=== PATIENT | male | born 1970 | race American Indian/Alaskan Native ===

== ENCOUNTER 2017-08-15 07:22 | Emergency (ER) | payer OTHER, BC ==
[2017-08-15 07:22] VITALS: BMI 28.7
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
[2017-08-15 08:18] LABS: BASO # 0.05 K/mm3 (0.0-2.0); BASO % 0.7 % (0.0-3.0); EOS # 0.1 (0.0-0.7); EOS % 1.9 % (1.5-5.0); GRAN # 4.73 (1.4-6.5); GRAN % 63.8 % (50.0-68.0); HEMATOCRIT 34.6 % (42.0-52.0); LYMPH % 27.5 % (22.0-35.0); MEAN CELL VOLUME 81.6 fl (80.0-105.0); MEAN CORPUSCULAR HEMOGLOBIN 29.7 pg (25.0-35.0); MEAN CORPUSCULAR HGB CONC 36.4 g/dl (31.0-37.0); MEAN PLATELET VOLUME 10.9 fl (7.0-11.0); MONO # 0.5 (0.1-0.6); MONO % 6.1 % (1.0-6.0); RED CELL DISTRIBUTION WIDTH 12.3 % (11.5-14.5); WHITE BLOOD COUNT 7.4 10^3/ul (4.5-11.0)
[2017-08-15 08:34] LABS: ALB/GLOB RATIO 1.1 (1.1-1.8); ALKALINE PHOSPHATASE 95 U/L (38-126); ALT/SGPT 43 U/L (7-56); AST/SGOT 44 U/L (17-59); BILIRUBIN,TOTAL 0.4 mg/dL (0.2-1.3); BLOOD UREA NITROGEN 19 mg/dL (7-21); CALCIUM 8.7 mg/dL (8.4-10.5); CARBON DIOXIDE 24 mmol/L (21-33); CHLORIDE 104 mmol/L (98-107); GFR AFRICAN-AMERICAN > 60; POTASSIUM 4.1 mmol/L (3.6-5.0); SODIUM 135 mmol/L (132-148)
[2017-08-15 08:42] LABS: GLUCOSE,RANDOM 386 mg/dL (70-110)
--- NOTE | 2017-08-15 09:20 | CT ---
PROCEDURE: CT HEAD WITHOUT CONTRAST. HISTORY: headache, hypertension COMPARISON: 01/23/2014 TECHNIQUE: Axial computed tomography images were obtained through the head/brain without intravenous contrast. Radiation dose: Total exam DLP = 775 mGy-cm. This CT exam was performed using one or more of the following dose reduction techniques: Automated exposure control, adjustment of the mA and/or kV according to patient size, and/or use of iterative reconstruction technique. FINDINGS: HEMORRHAGE: No intracranial hemorrhage. BRAIN: No mass effect or edema. No atrophy or chronic microvascular ischemic changes. VENTRICLES: Unremarkable. No hydrocephalus. CALVARIUM: Unremarkable. PARANASAL SINUSES: Unremarkable as visualized. No significant inflammatory changes. MASTOID AIR CELLS: Unremarkable as visualized. No inflammatory changes. OTHER FINDINGS: None. IMPRESSION: Normal CT of the Head.
[2017-08-15 10:01] VITALS: RESP 17; O2SAT 98
[2017-08-15] MEDS ORDERED: Sodium Chloride 0.9% 500 ML IV STA (10:44)
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
[2017-08-15 12:50] VITALS: BP 160/91; PULSE 80; TEMP 98.1
--- NOTE | 2017-08-15 20:55 | CARD ---
APPROVED REPORT EKG Measurement Heart [id number] <Conclusion> Normal sinus rhythm Nonspecific T wave abnormality Abnormal ECG
== END 2017-08-15 12:50 | disposition home or self-care (01) ==
LOC: ED 07:22
DX: M54.5 Low back pain (principal); I10 Essential (primary) hypertension; M54.16 Radiculopathy, lumbar region
CPT/HCPCS: 70450; 72100; 80053; 85025; 93005; 96361; 96374; 99283; J1885; J7040

== ENCOUNTER 2018-02-12 17:21 | Inpatient (IN) | payer BC, OTHER ==
[2018-02-12 17:21] VITALS: BMI 28.7
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
[2018-02-12] MEDS ORDERED: Sodium Chloride 0.9% 1,000 ML IV SCH ×2 (18:00→20:25)
[2018-02-12 18:19] LABS: BASO # 0.03 K/mm3 (0.0-2.0); BASO % 0.3 % (0.0-3.0); EOS % 0.4 % (1.5-5.0); GRAN # 7.78 (1.4-6.5); GRAN % 72.1 % (50.0-68.0); HEMOGLOBIN 13.6 g/dL (14.0-18.0); LYMPH # 2.1 (1.2-3.4); LYMPH % 19.8 % (22.0-35.0); MEAN CELL VOLUME 81.2 fl (80.0-105.0); MEAN CORPUSCULAR HEMOGLOBIN 29.4 pg (25.0-35.0); MEAN CORPUSCULAR HGB CONC 36.2 g/dl (31.0-37.0); MEAN PLATELET VOLUME 10.3 fl (7.0-11.0); MONO # 0.8 (0.1-0.6); MONO % 7.4 % (1.0-6.0); RBC 4.63 10^6/uL (3.5-6.1); RED CELL DISTRIBUTION WIDTH 12.8 % (11.5-14.5); WHITE BLOOD COUNT 10.8 10^3/ul (4.5-11.0)
[2018-02-12 18:24] LABS: INR 1.09 (0.93-1.08); PARTIAL THROMBOPLASTIN TIME 33.8 Seconds (25.1-36.5); PROTHROMBIN TIME 12.5 SECONDS (9.4-12.5)
[2018-02-12 18:37] LABS: ALB/GLOB RATIO 1.2 (1.1-1.8); ALBUMIN 3.8 g/dL (3.0-4.8); ALT/SGPT 39 U/L (7-56); AST/SGOT 36 U/L (17-59); BLOOD UREA NITROGEN 19 mg/dL (7-21); CALCIUM 8.9 mg/dL (8.4-10.5); GFR AFRICAN-AMERICAN > 60; GFR NON-AFRICAN AMERICAN 55
[2018-02-12 18:41] LABS: B-TYPE NATRIURETIC PEPTIDE 652 pg/mL (0-450); TROPONIN I < 0.01 ng/mL
[2018-02-12 19:07] LABS: URINE BILIRUBIN SMALL (NEGATIVE); URINE BLOOD MODERATE (NEGATIVE); URINE GLUCOSE (UA) 100 mg/dL (NEGATIVE); URINE LEUKOCYTE ESTERASE NEGATIVE Leu/uL (NEGATIVE); URINE PROTEIN >=300 mg/dL (<30 mg/dL); URINE UROBILINOGEN 0.2 E.U./dL (<1 E.U./dL)
[2018-02-12 19:09] LABS: URINE APPEARANCE SL CLOUDY (CLEAR); URINE COLOR YELLOW (YELLOW)
[2018-02-12 19:22] LABS: URINE BACTERIA MOD (NEG); URINE FINE GRANULAR CAST 0 - 2 /hpf (0-2); URINE HYALINE CAST 0 - 2 /hpf
[2018-02-12 19:35] LABS: CK-MB 1.8 ng/mL (0.0-3.6)
--- NOTE | 2018-02-12 19:48 | CP.PCM.HP ---
<Eugene Orr - Last Filed: 02/12/18 20:37> History of Present Illness - History of Present Illness History of Present Illness: Subjective: CC: Chest Pain, Vomiting HPI: Patient is a 47 year old male with a past medical history of hypertension and diabetes who presents to the ED for evaluation and treatment of chest pain. States the pain began 1 day ago without any specific provoking event. Originates in the left parasternal region, radiates down left arm, and was associated with SOB. Reproduced on palpation however without radiation. Also admits to several associated bouts of nonbloody nonbilious emesis last night which has resolved without any acute intervention. Denies fever, chills, abdominal pain, diarrhea, constipation, and urinary symptoms. PMHx: htn, dm, questionable CAD PSHx: denies Allergies: ornelas, yellow cheese Medications: please see MAR Social Hx: denies ETOH, denies tobacco, denies illicit drug use PMD: Dr. Farmer Pharmacy: [facility] [place] 12 point ROS negative except as indicated in HPI. Physical Examination: - Constitutional Appears: Well, No Acute Distress - Head Exam Head Exam: ATRAUMATIC, NORMOCEPHALIC - Eye Exam Eye Exam: Normal appearance. absent: Scleral icterus - ENT Exam ENT Exam: Mucous Membranes Moist, Normal Exam - Neck Exam Neck Exam: Normal Inspection - Respiratory Exam Respiratory Exam: Clear to Auscultation Bilateral, NORMAL BREATHING PATTERN. absent: Rales, Rhonchi, Wheezes, Respiratory Distress - Cardiovascular Exam Cardiovascular Exam: REGULAR RHYTHM, +S1, +S2 - GI/Abdominal Exam GI & Abdominal Exam: Soft, Normal Bowel Sounds. absent: Guarding, Rigid, Tenderness, Organomegaly - Extremities Exam Extremities Exam: no clubbing, no cyanosis absent: Joint Swelling - Neurological Exam Neurological Exam: Alert, Awake, Oriented x3 - Skin Skin Exam: Dry, Intact, Normal Color, Warm Assessment and Plan: Patient is a 47 year old male with a past medical history of hypertension and diabetes who was admitted for evaluation and treatment of chest pain. Chest Pain - rule out ACS - EKG reviewed and appreciated- NSR HR 93bpm, QTc 450, T wave abnormality in leads I and v6 - troponins negative x 1, will trend q6h x 2 - asa loaded in ED, 81mg po daily - cardiology consulted- appreciate recommendations - CXR- ordered by ED, official read pending at time of admission - Echo from LVEF 60-65%, mild aortic regurgitation Nausea, Vomiting - zofran prn QTc 450 Elevated CPK - patient denied recent rigorous activity, no trauma, not on statin - IVF NS @ 60 Microscopic Hematuria - blood moderate on UA - renal ultrasound ordered and pending Anemia - Hgb reviewed, trended, appreciated- low normal - likely 2/2 IVF - monitor closely via CBC Hx of HTN - blood pressure- reviewed, trended, and appreciated- elevated 160s/100 - confirm home antihypertensive medication- believes he takes HCTZ but uncertain - prn hydralazine Hx of DM - ACHS - hold home insulin - ISS - carb consistent diet Prophylaxis - DVT- scds - GI- not indicated Patient case reviewed with and plan approved by attending physician, Dr. Tinoco. Present on Admission - Present on Admission Any Indicators Present on Admission: No Past Patient History - Infectious Disease Hx of Infectious Diseases: None - Tetanus Immunizations Tetanus Immunization: Unknown - Past Social History Smoking Status: Never Smoked - CARDIAC Hx Hypertension: Yes - PULMONARY Hx Respiratory Disorders: No - NEUROLOGICAL Hx Neurological Disorder: No (SYNCOPAL EPISODE 4-5 YRS AGO AND TODAY 4--14) - HEENT Hx HEENT Problems: No - RENAL Hx Chronic Kidney Disease: No - ENDOCRINE/METABOLIC Hx Diabetes Mellitus Type 1: Yes - HEMATOLOGICAL/ONCOLOGICAL Hx Blood Disorders: No - INTEGUMENTARY Hx Dermatological Problems: No (TATTOOS) - MUSCULOSKELETAL/RHEUMATOLOGICAL Hx Musculoskeletal Disorders: No - GASTROINTESTINAL Hx Gastroesophageal Reflux: Yes - GENITOURINARY/GYNECOLOGICAL Hx Genitourinary Disorders: No - PSYCHIATRIC Hx Psychophysiologic Disorder: No Hx Substance Use: No - SURGICAL HISTORY Hx Surgeries: No Meds Allergies/Adverse Reactions: Allergies Allergy/AdvReac Type Severity Reaction Status Date / Time [place] Allergy Severe ANAPHYLAXIS Uncoded 02/12/18 17:27 yellow cheese Allergy Severe ANAPHYLAXIS Uncoded 02/12/18 17:27 Results - Vital Signs Recent Vital Signs: Last Vital Signs Temp 98.2 F 02/12/18 17:21 Pulse 87 02/12/18 19:15 Resp 18 02/12/18 19:15 BP 167/100 H 02/12/18 19:15 Pulse Ox 100 02/12/18 19:15 - Labs Result Diagrams: 02/12/18 17:55 02/12/18 17:55 Labs: Laboratory Results - last 24 hr 02/12/18 02/12/18 02/12/18 17:37 17:55 17:55 WBC 10.8 D RBC 4.63 Hgb 13.6 L Hct 37.6 L MCV 81.2 MCH 29.4 MCHC 36.2 RDW 12.8 Plt Count 347 MPV 10.3 Gran % 72.1 H Lymph % (Auto) 19.8 L Alpine % (Auto) 7.4 H Eos % (Auto) 0.4 L Baso % (Auto) 0.3 Gran # 7.78 H Lymph # (Auto) 2.1 Alpine # (Auto) 0.8 H Eos # (Auto) 0.0 Baso # (Auto) 0.03 PT 12.5 INR 1.09 H APTT 33.8 Sodium Potassium Chloride Carbon Dioxide Anion Gap BUN Creatinine Est GFR ( Amer) Est GFR (Non-Af Amer) POC Glucose (mg/dL) 132 H Random Glucose Calcium Magnesium Total Bilirubin AST ALT Alkaline Phosphatase Lactate Dehydrogenase Total Creatine Kinase CK-MB (CK-2) CK-MB (CK-2) % Troponin I NT-Pro-B Natriuret Pep Total Protein Albumin Globulin Albumin/Globulin Ratio Urine Color Urine Appearance Urine pH Ur Specific [place] Urine Protein Urine Glucose (UA) Urine Ketones Urine Blood Urine Nitrate Urine Bilirubin Urine Urobilinogen Ur Leukocyte Esterase Urine RBC Urine WBC Ur Epithelial Cells Urine Bacteria Hyaline Casts Fine Granular Casts 02/12/18 02/12/18 17:55 18:50 WBC RBC Hgb Hct MCV MCH MCHC RDW Plt Count MPV Gran % Lymph % (Auto) Alpine % (Auto) Eos % (Auto) Baso % (Auto) Gran # Lymph # (Auto) Alpine # (Auto) Eos # (Auto) Baso # (Auto) PT INR APTT Sodium 142 Potassium 3.6 Chloride 105 Carbon Dioxide 26 Anion Gap 14 BUN 19 Creatinine 1.4 Est GFR ( Amer) > 60 Est GFR (Non-Af Amer) 55 POC Glucose (mg/dL) Random Glucose 131 H Calcium 8.9 Magnesium 1.9 Total Bilirubin 0.6 AST 36 ALT 39 Alkaline Phosphatase 59 Lactate Dehydrogenase 774 H Total Creatine Kinase 458 H CK-MB (CK-2) 1.8 CK-MB (CK-2) % Cancelled Troponin I < 0.01 NT-Pro-B Natriuret Pep 652 H Total Protein 6.8 Albumin 3.8 Globulin 3.1 Albumin/Globulin Ratio 1.2 Urine Color Yellow Urine Appearance Sl cloudy Urine pH 6.0 Ur Specific [place] >= 1.030 Urine Protein >=300 H Urine Glucose (UA) 100 H Urine Ketones Negative Urine Blood Moderate H Urine Nitrate Negative Urine Bilirubin Small H Urine Urobilinogen 0.2 Ur Leukocyte Esterase Negative Urine RBC 2 - 5 Urine WBC 5 - 10 Ur Epithelial Cells 1 - 3 Urine Bacteria Mod Hyaline Casts 0 - 2 Fine Granular Casts 0 - 2 <Cathy Tinoco - Last Filed: 02/13/18 06:41> Results - Vital Signs Recent Vital Signs: Last Vital Signs Temp 98 F 02/13/18 06:00 Pulse 89 02/13/18 06:00 Resp 20 02/13/18 06:00 BP 163/80 H 02/13/18 06:00 Pulse Ox 98 02/13/18 06:00 - Labs Result Diagrams: 02/12/18 17:55 02/12/18 17:55 Labs: Laboratory Results - last 24 hr 02/12/18 02/12/18 22:41 23:15 POC Glucose (mg/dL) 90 Lactate Dehydrogenase 626 Total Creatine Kinase 336 H CK-MB (CK-2) 1.2 CK-MB (CK-2) % Cancelled Troponin I < 0.01 Attending/Attestation - Attestation I have personally seen and examined this patient.: Yes I have fully participated in the care of the patient.: Yes I have reviewed all pertinent clinical information: Yes Notes (Text): 02/13/18 06:31 Patient was seen when he was in the ER. Agree with history, physical examination, assessment and plan. Following should be noted. Impressions: Chest pain. NIDDM. HLD. HTN. Hematuria. Elevated CK. Elevated BNP. EKG change-Inverte T in I, aVL, V6. Family history of CAD. Family history of GA. Allergy to [place], yellow cheese. History of syncope. History of syncope. History of diverticulitis. Marijuana use. Drinks beer now and then. Family [id number], PGF-DM, renal failure., MGF-renal failure, Mother - cancer -does not know where, MGF-colon cancer, ROS:Has chills, night sweat, blurry eyes , epistaxis as child , underactive thyroid, prescribed some medication for that by , GERD, had cystoscopy done in Oct 2017 by Melissa Villalobos for blood in urine, history of migraine +.
[2018-02-12 21:01] LABS: HDL CHOLESTEROL 69 mg/dL (29-60)
[2018-02-12 21:12] LABS: LDL CHOLESTEROL 60 mg/dL (0-129)
[2018-02-12] MEDS: Insulin Lispro (humaLOG) MEDIUM Coverage SC SCH (22:51)
[2018-02-12 23:47] LABS: TROPONIN I < 0.01 ng/mL
[2018-02-13 00:02] LABS: CK-MB 1.2 ng/mL (0.0-3.6)
[2018-02-13 07:13] LABS: TROPONIN I 0.04 ng/mL
[2018-02-13 07:29] LABS: BASO # 0.04 K/mm3 (0.0-2.0); BASO % 0.5 % (0.0-3.0); EOS # 0.1 (0.0-0.7); EOS % 1.5 % (1.5-5.0); GRAN # 5.21 (1.4-6.5); GRAN % 60.3 % (50.0-68.0); HEMOGLOBIN 12.5 g/dL (14.0-18.0); LYMPH # 2.5 (1.2-3.4); LYMPH % 28.4 % (22.0-35.0); MEAN CELL VOLUME 82.5 fl (80.0-105.0); MEAN CORPUSCULAR HEMOGLOBIN 29.5 pg (25.0-35.0); MEAN CORPUSCULAR HGB CONC 35.7 g/dl (31.0-37.0); MONO # 0.8 (0.1-0.6); MONO % 9.3 % (1.0-6.0); RBC 4.24 10^6/uL (3.5-6.1); RED CELL DISTRIBUTION WIDTH 12.9 % (11.5-14.5); WHITE BLOOD COUNT 8.6 10^3/ul (4.5-11.0)
[2018-02-13 07:30] LABS: ALBUMIN 2.9 g/dL (3.0-4.8); ALT/SGPT 31 U/L (7-56); AST/SGOT 34 U/L (17-59); BLOOD UREA NITROGEN 20 mg/dL (7-21); CALCIUM 8.1 mg/dL (8.4-10.5); GFR AFRICAN-AMERICAN > 60; GFR NON-AFRICAN AMERICAN 60
[2018-02-13] MEDS: Insulin Lispro (humaLOG) MEDIUM Coverage SC SCH ×4 (08:07→21:46)
[2018-02-13] MEDS ORDERED: Iohexol 240 (50 ml) ONE (08:11)
--- NOTE | 2018-02-13 09:16 | RAD ---
HISTORY: 47M, chest pain COMPARISON: Comparison made with prior study 01/23/2014 FINDINGS: LUNGS: No acute infiltrates. Note made of a small nodular density left lung base which could represent confluence of shadow, vessel on end or nipple shadow artifact however possibility of a tiny nodule not excluded. Followup nonemergent CT scan of the chest could be performed for further evaluation the PLEURA: No significant pleural effusion identified, no pneumothorax apparent. CARDIOVASCULAR: Normal. OSSEOUS STRUCTURES: No significant abnormalities. VISUALIZED UPPER ABDOMEN: Normal. OTHER FINDINGS: None. IMPRESSION: No acute infiltrates. Note made of a small nodular density left lung base which could represent confluence of shadow, vessel on end or nipple shadow artifact however possibility of a tiny nodule not excluded. Followup nonemergent CT scan of the chest could be performed for further evaluation. . The all placed PA and ball followup
--- NOTE | 2018-02-13 10:51 | CP.PCM.PN ---
Addendum entered and electronically signed by Eugene Orr DO 02/13/18 12:36: As per patient, he had a cystoscopy for evaluation and work up of his microscopic hematuria with Dr. Torres which resulted in no significant findings. Will contact urologist for further information/clarification. Original Note: <Eugene Orr - Last Filed: 02/13/18 10:37> Subjective - Date & Time of Evaluation Date of Evaluation: 02/13/18 Time of Evaluation: 07:20 - Subjective Subjective: Subjective: Patient seen and examined at bedside. Resting comfortably in bed. No acute overnight events. Patient states chest pain remains the same compared to baseline. Offers no new complaints at this time. Denies fever, chills, shortness of breath, diarrhea, constipation, and urinary symptoms. 12-point review of systems negative except as indicated in the HPI Physical Examination: - Constitutional Appears: Well, No Acute Distress - Head Exam Head Exam: ATRAUMATIC, NORMOCEPHALIC - Eye Exam Eye Exam: Normal appearance. absent: Scleral icterus - ENT Exam ENT Exam: Mucous Membranes Moist, Normal Exam - Neck Exam Neck Exam: Normal Inspection - Respiratory Exam Respiratory Exam: Clear to Auscultation Bilateral, NORMAL BREATHING PATTERN. absent: Rales, Rhonchi, Wheezes, Respiratory Distress - Cardiovascular Exam Cardiovascular Exam: REGULAR RHYTHM, +S1, +S2, left anterior chest wall tender to touch - GI/Abdominal Exam GI & Abdominal Exam: Soft, Normal Bowel Sounds. absent: Guarding, Rigid, Tenderness, Organomegaly - Extremities Exam Extremities Exam: no clubbing, no cyanosis absent: Joint Swelling - Neurological Exam Neurological Exam: Alert, Awake, Oriented x3 - Skin Skin Exam: Dry, Intact, Normal Color, Warm Assessment and Plan: Patient is a 47 year old male with a past medical history of hypertension and diabetes who was admitted for evaluation and treatment of chest pain. Chest Pain - rule out ACS- troponins less than 0.01 x 3 - EKG reviewed and appreciated- NSR HR 93bpm, QTc 450, T wave abnormality in leads I and v6 - asa loaded in ED, 81mg po daily - cardiology consulted- appreciate recommendations - CXR- ordered by ED, official read pending at time of admission - Echo from 2013 shows LVEF 60-65%, mild aortic regurgitation, repeat echo ordered and pending - UDS ordered and pending- rule out illicit drug induced angina Nausea, Vomiting - zofran prn QTc 450 - abdominal CT with PO contrast ordered and pending Elevated CPK - trending down - patient denied recent rigorous activity, no trauma, not on statin - stop IVF NS @ 60 as CPK is downtrending and BP is elevated Microscopic Hematuria - blood moderate on UA - renal ultrasound ordered and pending- completed awaiting official read - repeat UA ordered and pending Anemia - Hgb reviewed, trended, appreciated- low normal - likely 2/2 IVF - monitor closely via CBC Hx of HTN - blood pressure- reviewed, trended, and appreciated- elevated 160s/100 - patient started on lisinopril and metoprolol - prn hydralazine Hx of DM - ACHS - hold home insulin - ISS - carb consistent diet Prophylaxis - DVT- scds - GI- not indicated Patient case reviewed with and plan approved by attending physician, Dr. Cuadra. Objective - Vital Signs/Intake and Output Vital Signs (last 24 hours): Temp Pulse Resp BP Pulse Ox 98 F 85 20 186/93 H 98 02/13/18 06:00 02/13/18 09:28 02/13/18 06:00 02/13/18 09:28 02/13/18 06:00 Intake and Output: 02/13/18 02/13/18 06:59 18:59 Intake Total 540 Output Total 0 Balance 540 - Medications Medications: Current Medications Aspirin (Ecotrin) 81 mg PO DAILY [facility] Last Admin: 02/13/18 09:28 Dose: 81 mg Hydralazine HCl (Apresoline) 10 mg IVP DAILY PRN PRN Reason: Systolic Blood Pressure Sodium Chloride (Sodium Chloride 0.9%) 1,000 mls @ 60 mls/hr IV .[id number] [facility] Last Admin: 02/12/18 21:21 Dose: 60 mls/hr Insulin Human Lispro (Humalog Med) 0 units SC [facility] PRN Reason: Protocol Last Admin: 02/13/18 08:07 Dose: Not Given Lisinopril (Zestril) 10 mg PO DAILY [facility] Last Admin: 02/13/18 09:28 Dose: 10 mg Metoprolol Tartrate (Lopressor) 25 mg PO BID [facility] Last Admin: 02/13/18 09:28 Dose: 25 mg Ondansetron HCl (Zofran Inj) 4 mg IVP Q6H PRN PRN Reason: Nausea/Vomiting - Labs Labs: 02/13/18 06:00 02/13/18 06:00 PT 12.5 SECONDS (9.4-12.5) 02/12/18 17:55 INR 1.09 (0.93-1.08) H 02/12/18 17:55 APTT 33.8 Seconds (25.1-36.5) 02/12/18 17:55 <Kitty Cuadra - Last Filed: 02/13/18 14:59> Objective - Vital Signs/Intake and Output Vital Signs (last 24 hours): Temp Pulse Resp BP Pulse Ox 98.1 F 72 20 178/94 H 98 02/13/18 12:00 02/13/18 12:00 02/13/18 12:00 02/13/18 12:00 02/13/18 06:00 Intake and Output: 02/13/18 02/13/18 06:59 18:59 Intake Total 540 Output Total 0 Balance 540 - Medications Medications: Current Medications Aspirin (Ecotrin) 81 mg PO DAILY [facility] Last Admin: 02/13/18 09:28 Dose: 81 mg Hydralazine HCl (Apresoline) 10 mg IVP DAILY PRN PRN Reason: Systolic Blood Pressure Ceftriaxone Sodium (Rocephin 1 Gram Ivpb) 1 gm in 100 mls @ 100 mls/hr IVPB DAILY [facility] PRN Reason: Protocol Insulin Human Lispro (Humalog Med) 0 units SC [facility] PRN Reason: Protocol Last Admin: 02/13/18 13:03 Dose: 1 units Lisinopril (Zestril) 10 mg PO DAILY [facility] Last Admin: 02/13/18 09:28 Dose: 10 mg Metoprolol Tartrate (Lopressor) 25 mg PO BID [facility] Last Admin: 02/13/18 09:28 Dose: 25 mg Ondansetron HCl (Zofran Inj) 4 mg IVP Q6H PRN PRN Reason: Nausea/Vomiting - Labs Labs: 02/13/18 06:00 02/13/18 06:00 PT 12.5 SECONDS (9.4-12.5) 02/12/18 17:55 INR 1.09 (0.93-1.08) H 02/12/18 17:55 APTT 33.8 Seconds (25.1-36.5) 02/12/18 17:55 Attending/Attestation - Attestation I have personally seen and examined this patient.: Yes I have fully participated in the care of the patient.: Yes I have reviewed all pertinent clinical information, including history, physical exam and plan: Yes Notes (Text): 02/13/18 14:56 attending note; Patient seen and examined with resident. Patient is a 47-year-old male with a past medical history of hypertension, diabetes, diverticulitis, microscopic hematuria is admitted with chest pain. EKG showed nonspecific changes. Cardiac enzymes negative. Echocardiogram ordered. Cardiology evaluation requested. Abdominal discomfort. Patient had few episodes of nausea and vomiting yesterday. CT abdomen and pelvis showed diverticulosis without diverticulitis. Mild perinephric stranding around both kidneys noted. no kidney stones or hydronephrosis. Started on IV Rocephin. Urine culture is pending. Patient had previous workup With Dr. Torres for microscopic hematuria with cystoscopy. The workup was normal as per patient. Renal ultrasound is normal. Needs outpatient follow up. Possible discharge home tomorrow if clinically stable. Upon discharge The patient will follow up with PMD .
[2018-02-13 13:24] LABS: T4 6.8 ug/dL (5.5-11.0)
--- NOTE | 2018-02-13 13:30 | CT ---
PROCEDURE: CT Abdomen and Pelvis with Oral contrast. HISTORY: Abdominal pain with nausea vomiting COMPARISON: Correlation made with renal ultrasound obtained earlier same day TECHNIQUE: Contiguous axial images of the abdomen and pelvis. Oral contrast was administered. No IV contrast given. Coronal and Sagittal reformats generated. Radiation dose: Total exam DLP = This CT exam was performed using one or more of the following dose reduction techniques: Automated exposure control, adjustment of the mA and/or kV according to patient size, and/or use of iterative reconstruction technique. FINDINGS: LOWER THORAX: Heart size is of borderline/mildly enlarged. No significant pericardial effusion. Lung bases clear. No infiltrate effusion or basilar pneumothorax. There is tiny hiatal hernia with slight wall thickening of the distal esophagus that is likely due to protrusion of gastric mucosa however esophagitis not excluded. LIVER: Liver is upper limits of normal/ borderline enlarged measuring just over 19 cm in CC dimension. No obvious hepatic mass or collection identified on this noncontrast study. GALLBLADDER AND BILE DUCTS: Unremarkable. PANCREAS: Unremarkable. No mass. No ductal dilatation. SPLEEN: Unremarkable. No splenomegaly. ADRENALS: Unremarkable. KIDNEYS AND URETERS: There is a small approximately 2.7 x 2.1 partially exophytic round/elliptical shaped focus low attenuation upper pole right kidney that exhibits Hounsfield units in the upper single digits consistent with a cyst. . No evidence of nephrolithiasis or hydronephrosis. Some vague infiltration changes in the perinephric fat more so on the right side nonspecific. Rule out UTI. BLADDER: Urinary bladder physiologically distended. No evidence of intraluminal urinary bladder calculi. . No definitive abnormal bladder wall thickening. REPRODUCTIVE: Prostate gland measures approximately 4.6 cm in transverse dimension. Prostatic calcifications are present. Findings likely due to BPH however correlation with PSA recommended. APPENDIX: Normal-appearing appendix best seen on coronal image number [id number]. BOWEL: Evaluation of the bowel is somewhat limited due to incomplete opacification. The stomach is and nondistended which in accounts for thick-walled appearance gastritis not excluded. . Visualized loops of small bowel exhibit normal contour and caliber. No evidence of acute mechanical small bowel obstruction with oral contrast material seen extending into large bowel to the level of the splenic flexure region. Scattered colonic diverticula seen along the descending and sigmoid colon however no definitive radiographic evidence of acute diverticulitis. PERITONEUM: Unremarkable. No fluid collection. No free air. Small fat containing inguinal hernia. LYMPH NODES: Few small nonspecific retroperitoneal and mesenteric lymph nodes are present. VASCULATURE: Unremarkable. No aortic aneurysm. BONES: The vertebral bodies exhibit normal stature. There is straightening of the normal lumbar lordosis however vertebral bodies otherwise exhibit normal alignment. Facets normally aligned. Very minor multilevel degenerative spondylosis of the lower thoracic and lumbar spine. OTHER FINDINGS: None. IMPRESSION: There is an exophytic cyst upper pole right kidney. Vague infiltration changes within the perinephric fat bilaterally right greater than left. Rule out UTI. No evidence of nephrolithiasis or hydronephrosis. Hepatomegaly. Diverticulosis without radiographic evidence of acute diverticulitis. See above discussion for additional details and findings.
--- NOTE | 2018-02-13 13:34 | US ---
PROCEDURE: Ultrasound of the Kidneys HISTORY: microscopic hematuria COMPARISON: None available. TECHNIQUE: Sonogram of the kidneys. FINDINGS: RIGHT KIDNEY: Measures: 12.8 x 6.5 x 6.6 cm. Normal in size, contour and echogenicity. Partially exophytic cyst upper pole right kidney measuring 2.5 x2 0.4 x 2.2 cm No stone, solid mass lesion or hydronephrosis visualized. LEFT KIDNEY: Measures: 11.4 x 7.6 x 6.7 cm. Normal in size, contour and echogenicity. No stone, solid mass lesion or hydronephrosis visualized. OTHER FINDINGS: None. IMPRESSION: Exophytic cyst upper pole right kidney. No evidence of nephrolithiasis or hydronephrosis.
[2018-02-13] MEDS: cefTRIAXone 1 gm 1 GM/100 ML BAG IVPB SCH (14:22)
[2018-02-13 19:55] LABS: PH,URINE 5.5 (4.7-8.0); URINE BILIRUBIN NEGATIVE (NEGATIVE); URINE BLOOD MODERATE (NEGATIVE); URINE GLUCOSE (UA) 100 mg/dL (NEGATIVE); URINE LEUKOCYTE ESTERASE NEGATIVE Leu/uL (NEGATIVE); URINE PROTEIN >=300 mg/dL (<30 mg/dL); URINE UROBILINOGEN 0.2 E.U./dL (<1 E.U./dL)
[2018-02-13 20:00] LABS: URINE APPEARANCE SL CLOUDY (CLEAR); URINE COLOR DARK YELLOW (YELLOW)
[2018-02-13 20:07] LABS: URINE AMORPHOUS SEDIMENT SMALL; URINE RBC 20 - 25 /hpf (0-2)
[2018-02-13 20:30] LABS: BARBITURATES, UR NEGATIVE (NEGATIVE); BENZODIAZEPINES, UR NEGATIVE (NEGATIVE); OPIATES, UR NEGATIVE (NEGATIVE); PHENCYCLIDINE, UR NEGATIVE (NEGATIVE)
--- NOTE | 2018-02-13 21:49 | CARD ---
APPROVED REPORT EKG Measurement Heart [id number] <Conclusion> Normal sinus rhythm T wave abnormality, consider lateral ischemia Abnormal ECG
--- NOTE | 2018-02-14 02:55 | CON ---
DATE: CARDIOLOGY CONSULTATION REASON FOR CONSULTATION: Chest pain. HISTORY OF PRESENT ILLNESS: The patient is a 47-year-old male, who has a history of hypertension and diabetes mellitus. The patient has been diabetic for the past 7 years. He presents because of chest pain that he describes as both sharp and heavy, and it has been constant since admission until now. The patient is unaware of any prior cardiac history. The patient described radiation of the chest pain to left arm, but denies any shortness of breath or diaphoresis. The chest pain happened while the patient was resting at home. SOCIAL HISTORY: Nonsmoker. MEDICATIONS: Hydralazine 10 mg intravenously p.r.n., aspirin 81 mg once a day, Lopressor 25 mg once a day, Rocephin 1 g 10 mg once a day, Zofran 4 mg intravenously every 6 hours p.r.n. REVIEW OF SYSTEMS: The patient did report nausea and vomiting. No diarrhea. PHYSICAL EXAMINATION: GENERAL: The patient is a middle-aged male, who does not appear to be in any distress. VITAL SIGNS: Blood pressure 178/94, heart rate 72, temperature 98.1, respirations 20. HEENT: Normocephalic. CHEST: Clear. HEART: S1 and S2 regular. ABDOMEN: Soft. EXTREMITIES: No edema. No calf tenderness. LABORATORY DATA: Hemoglobin and hematocrit 12.5 and 35. White count and platelet count are within normal limits. SMA-7: Sodium 140, potassium 3.7, chloride 108, CO2 of 27, glucose 141, BUN 20, creatinine 1.3. Two sets of troponins are not in the elevated range. TSH level is elevated at 14.3. T4 level is 6.8, within normal limit. INR is 1.09. PTT 33.8. EKG reveals sinus rhythm, consider lateral ischemic T wave changes. Abdomen and pelvis CT scan reveals exophytic cyst, upper right kidney pole. No evidence of nephrolithiasis or hydronephrosis. Hepatomegaly. Diverticulosis without areas of acute diverticulitis. Renal ultrasound, exophytic cyst upper pole right kidney. No evidence of nephrolithiasis or hydronephrosis. Chest x-ray was unremarkable. Echocardiographic study in 2014 revealed grade 1 abnormal relaxation pattern; however, is an unremarkable study except for trace MR and mild aortic insufficiency. ASSESSMENT: 1. Chest pain, rule out underlying coronary artery disease. 2. Hypertension and diabetes mellitus. 3. Rule out hypothyroidism. 4. Exophytic right upper pole renal cyst. RECOMMENDATIONS: Continue current hydralazine, aspirin, Lopressor, and Zestril. Obtain serial D-dimer, and schedule the patient for an echocardiographic study tomorrow to evaluate for any regional wall motion abnormality. Andrew García MD
[2018-02-14 06:57] LABS: BASO # 0.03 K/mm3 (0.0-2.0); BASO % 0.4 % (0.0-3.0); EOS # 0.1 (0.0-0.7); EOS % 1.5 % (1.5-5.0); GRAN # 5.12 (1.4-6.5); GRAN % 60.6 % (50.0-68.0); HEMOGLOBIN 12.5 g/dL (14.0-18.0); LYMPH # 2.6 (1.2-3.4); LYMPH % 30.5 % (22.0-35.0); MEAN CELL VOLUME 81.9 fl (80.0-105.0); MEAN CORPUSCULAR HEMOGLOBIN 28.6 pg (25.0-35.0); MEAN CORPUSCULAR HGB CONC 34.9 g/dl (31.0-37.0); MEAN PLATELET VOLUME 10.5 fl (7.0-11.0); MONO # 0.6 (0.1-0.6); RBC 4.37 10^6/uL (3.5-6.1); RED CELL DISTRIBUTION WIDTH 12.8 % (11.5-14.5); WHITE BLOOD COUNT 8.4 10^3/ul (4.5-11.0)
[2018-02-14 07:34] LABS: ALB/GLOB RATIO 0.9 (1.1-1.8); ALBUMIN 2.9 g/dL (3.0-4.8); ALT/SGPT 24 U/L (7-56); AST/SGOT 28 U/L (17-59); BLOOD UREA NITROGEN 22 mg/dL (7-21); CALCIUM 8.2 mg/dL (8.4-10.5); GFR AFRICAN-AMERICAN > 60; GFR NON-AFRICAN AMERICAN > 60
[2018-02-14] MEDS ORDERED: Potassium Chloride 40 mEq/30 ml LIQ UD PO ONE (08:23)
[2018-02-14 08:33] LABS: FREE T4 0.74 ng/dL (0.78-2.19)
--- NOTE | 2018-02-14 10:04 | CT ---
PROCEDURE: CT Chest without contrast HISTORY: follow up nodular opacity in left chest seen cxr COMPARISON: None. TECHNIQUE: Contiguous axial images were obtained through the chest without intravenous contrast enhancement. Sagittal and coronal reconstructions were performed. Radiation dose (DLP): mGy-cm. This CT exam was performed using one or more of the following dose reduction techniques: Automated exposure control, adjustment of the mA and/or kV according to patient size, and/or use of iterative reconstruction technique. FINDINGS: LUNGS: Clear lungs. Visualized airway clear. MEDIASTINUM: Unremarkable thoracic aorta. No aneurysm. Normal sized heart. Main pulmonary artery unremarkable. No vascular congestion. No lymphadenopathy. PLEURA: No pleural fluid. No pneumothorax. BONES: No fracture. No destructive lesion. UPPER ABDOMEN: 2.7 centimeter right upper pole renal cyst. OTHER FINDINGS: None. IMPRESSION: Unremarkable non-contrast enhanced CT of the chest.
[2018-02-14] MEDS: Insulin Lispro (humaLOG) MEDIUM Coverage SC SCH ×3 (10:10→18:13)
[2018-02-14] MEDS: cefTRIAXone 1 gm 1 GM/100 ML BAG IVPB SCH (10:45)
--- NOTE | 2018-02-14 10:46 | CP.PCM.PN ---
<Eugene Orr - Last Filed: 02/14/18 12:06> Subjective - Date & Time of Evaluation Date of Evaluation: 02/14/18 Time of Evaluation: 10:00 - Subjective Subjective: Subjective: Patient seen and examined at bedside. Resting comfortably in bed. No acute overnight events. Patient states chest pain, N/V have improved relative to baseline. Offers no new complaints at this time. Denies fever, chills, shortness of breath, diarrhea, constipation, and urinary symptoms. 12-point review of systems negative except as indicated in the HPI Physical Examination: - Constitutional Appears: Well, No Acute Distress - Head Exam Head Exam: ATRAUMATIC, NORMOCEPHALIC - Eye Exam Eye Exam: Normal appearance. absent: Scleral icterus - ENT Exam ENT Exam: Mucous Membranes Moist, Normal Exam - Neck Exam Neck Exam: Normal Inspection - Respiratory Exam Respiratory Exam: Clear to Auscultation Bilateral, NORMAL BREATHING PATTERN. absent: Rales, Rhonchi, Wheezes, Respiratory Distress - Cardiovascular Exam Cardiovascular Exam: REGULAR RHYTHM, +S1, +S2, left anterior chest wall tender to touch - GI/Abdominal Exam GI & Abdominal Exam: Soft, Normal Bowel Sounds. absent: Guarding, Rigid, Tenderness, Organomegaly - Extremities Exam Extremities Exam: no clubbing, no cyanosis absent: Joint Swelling - Neurological Exam Neurological Exam: Alert, Awake, Oriented x3 - Skin Skin Exam: Dry, Intact, Normal Color, Warm Assessment and Plan: Patient is a 47 year old male with a past medical history of hypertension and diabetes who was admitted for evaluation and treatment of chest pain. Chest Pain - rule out ACS- troponins less than 0.01 x 3 - EKG reviewed and appreciated- NSR HR 93bpm, QTc 450, T wave abnormality in leads I and v6 - asa loaded in ED, c/w 81mg po daily - cardiology consulted- appreciate recommendations- cardiac catherization - awaiting official report - CXR- No acute infiltrates. Note made of a small nodular density left lung base which could represent confluence of shadow, vessel on end or nipple shadow artifact however possibility of a tiny nodule not excluded - CT of chest- Unremarkable non-contrast enhanced CT of the chest - echo from 2013 shows LVEF 60-65%, mild aortic regurgitation, repeat echo ordered and read is pending - UDS clean Nausea, Vomiting - zofran prn QTc 450 - abdominal CT with PO contrast - There is an exophytic cyst upper pole right kidney. Vague infiltration changes within the perinephric fat bilaterally right greater than left. Rule out UTI. No evidence of nephrolithiasis or hydronephrosis. Hepatomegaly. Diverticulosis without radiographic evidence of acute diverticulitis Elevated CPK - trending down - patient denied recent rigorous activity, no trauma, not on statin - continue to hold IVF NS @ 60 as CPK is downtrending and BP is elevated Microscopic Hematuria - blood moderate on UA - renal ultrasound ordered- Exophytic cyst upper pole right kidney. No evidence of nephrolithiasis or hydronephrosis - repeat UA ordered and pending Anemia - Hgb reviewed, trended, appreciated- stable s/p IVF - likely 2/2 IVF - monitor closely via CBC Hypokalemia - repleted - mag level ordered 2.1 Hx of HTN - blood pressure- reviewed, trended, and appreciated- elevated 160s/100 - c/w lisinopril and metoprolol - prn hydralazine Hx of DM - ACHS - hold home insulin - ISS - carb consistent diet Prophylaxis - DVT- scds - GI- ppi started Patient case reviewed with and plan approved by attending physician, Dr. Bucio. Objective - Vital Signs/Intake and Output Vital Signs (last 24 hours): Temp Pulse Resp BP Pulse Ox 98.4 F 89 20 174/89 H 98 02/14/18 05:51 02/14/18 10:10 02/14/18 05:51 02/14/18 10:10 02/14/18 05:51 Intake and Output: 02/14/18 02/14/18 06:59 18:59 Intake Total 180 Balance 180 - Medications Medications: Current Medications Aspirin (Ecotrin) 81 mg PO DAILY [facility] Last Admin: 02/14/18 10:09 Dose: 81 mg Hydralazine HCl (Apresoline) 10 mg IVP DAILY PRN PRN Reason: Systolic Blood Pressure Last Admin: 02/13/18 22:00 Dose: 10 mg Ceftriaxone Sodium (Rocephin 1 Gram Ivpb) 1 gm in 100 mls @ 100 mls/hr IVPB DAILY [facility] PRN Reason: Protocol Last Admin: 02/13/18 14:22 Dose: 100 mls/hr Insulin Human Lispro (Humalog Med) 0 units SC ACHS [facility] PRN Reason: Protocol Last Admin: 02/14/18 10:10 Dose: Not Given Lisinopril (Zestril) 10 mg PO DAILY [facility] Last Admin: 02/14/18 10:10 Dose: 10 mg Metoprolol Tartrate (Lopressor) 25 mg PO BID [facility] Last Admin: 02/14/18 10:10 Dose: 25 mg Ondansetron HCl (Zofran Inj) 4 mg IVP Q6H PRN PRN Reason: Nausea/Vomiting - Labs Labs: 02/14/18 05:45 02/14/18 05:45 PT 12.5 SECONDS (9.4-12.5) 02/12/18 17:55 INR 1.09 (0.93-1.08) H 02/12/18 17:55 APTT 33.8 Seconds (25.1-36.5) 02/12/18 17:55 <Natalie Bucio - Last Filed: 02/15/18 16:57> Objective - Vital Signs/Intake and Output Vital Signs (last 24 hours): Temp Pulse Resp BP Pulse Ox 98.2 F 91 H 20 170/93 H 97 02/15/18 12:00 02/15/18 14:13 02/15/18 12:00 02/15/18 14:13 02/14/18 22:00 Intake and Output: 02/15/18 02/15/18 06:59 18:59 Intake Total 120 Balance 120 - Medications Medications: Current Medications Acetaminophen (Tylenol 325mg Tab) 650 mg PO Q6H PRN PRN Reason: Pain, Mild (1-3) Last Admin: 02/14/18 16:44 Dose: 650 mg Clonidine HCl (Catapres) 0.1 mg PO Q6H PRN PRN Reason: Other Insulin Human Lispro (Humalog Med) 0 units SC ACHS [facility] PRN Reason: Protocol Last Admin: 02/15/18 12:52 Dose: 1 units Levothyroxine Sodium (Synthroid) 25 mcg PO 0600 [facility] Last Admin: 02/15/18 11:04 Dose: 25 mcg Lisinopril (Zestril) 20 mg PO DAILY [facility] Metoclopramide HCl (Reglan) 10 mg IVP ACHS [facility] Metoprolol Tartrate (Lopressor) 25 mg PO BID [facility] Last Admin: 02/15/18 09:52 Dose: Not Given Ondansetron HCl (Zofran Inj) 4 mg IVP Q6H PRN PRN Reason: Nausea/Vomiting Last Admin: 02/15/18 07:56 Dose: 4 mg Pantoprazole Sodium (Protonix Inj) 40 mg IVP Q12 [facility] - Labs Labs: 02/15/18 06:30 02/15/18 06:30 PT 12.5 SECONDS (9.4-12.5) 02/12/18 17:55 INR 1.09 (0.93-1.08) H 02/12/18 17:55 APTT 33.8 Seconds (25.1-36.5) 02/12/18 17:55 Attending/Attestation - Attestation I have personally seen and examined this patient.: Yes I have fully participated in the care of the patient.: Yes I have reviewed all pertinent clinical information, including history, physical exam and plan: Yes Notes (Text): I have seen and examined patient with the resident at bedside. Agree with the above note with the following additions/ exceptions: Briefly this is 47 year old male with history of HTN, DM-2, diverticulosis, microscopic hematuria followed by urologist as an outpatient who came for evaluation of chest pain. Cardiac enzymes were negative. EKG showed some non specific changes. Patient underwent cardiac cath which was normal. He has elevated d dimer therefore CT scan was done which was negative for PE. Echo pending. He complains of nausea. CT abdomen and pelvis showed diverticulosis without diverticulitis. Continue rocephin empirically for UTI. Follow up urine culture. Renal ultrasound is normal. Upon discharge The patient will follow up with PMD .
[2018-02-14] MEDS ORDERED: Lidocaine 2% Inj (20ml) ONE (11:02)
[2018-02-14] MEDS ORDERED: Iohexol 350mgl/ml 50 ML ONE (11:03)
[2018-02-14] MEDS ORDERED: Iodixanol 320 MG/ML 200 ML BOTTLE IV ONE (11:04)
[2018-02-14] MEDS ORDERED: Iodixanol 320 MG/ML 100 ML BOTTLE IV ONE (11:04)
[2018-02-14] MEDS ORDERED: Phenylephrine 10 mg/ml Inj ONE (11:04)
--- NOTE | 2018-02-14 11:31 | CARD ---
APPROVED REPORT EKG Measurement Heart [id number] <Conclusion> Normal sinus rhythm Nonspecific T wave abnormality Abnormal ECG
[2018-02-14] MEDS ORDERED: Midazolam 2 MG/2 ML VIAL ONE (11:48)
[2018-02-14] MEDS ORDERED: DiphenhydrAMINE 50 mg/ml Inj ONE (12:00)
--- NOTE | 2018-02-14 13:17 | PN ---
DATE: FOLLOWUP SUBJECTIVE: The patient is still experiencing steady left pectoral chest pain. He did experience nausea. PHYSICAL EXAMINATION: VITAL SIGNS: Blood pressure 174/89, heart rate 89, temperature 98.4, respirations 20. HEENT: Normocephalic. CHEST: Clear. HEART: S1 and S2 regular. ABDOMEN: Soft. EXTREMITIES: No edema. LABORATORY DATA: Today's hemoglobin and hematocrit 12.5 and 35.8, white count and platelet count are within normal limit. SMA-7: Sodium 140, potassium 3.4, chloride 106, CO2 of 27, glucose 190, BUN 22, creatinine 1.2. Repeat TSH level is elevated at 17.6. Free T4 is reduced, it is below normal at 0.74. I did review the echocardiography study, which revealed mild concentric LVH with preserved systolic function. ASSESSMENT: 1. Steady left pectoral chest pain. 2. Hypertension and diabetes mellitus. 3. Hypokalemia. RECOMMENDATIONS Continue current aspirin 81 mg once a day, Lopressor 25 mg once a day, IV Rocephin 1 g daily, Zestril 10 mg once a day. I ordered Zofran 4 mg intravenously to be given now. Cardiac catheterization was recommended. The procedure and its risks fully explained to the patient, who understood them and agreed for procedure. Andrew García MD
[2018-02-14] MEDS: Pantoprazole 40 mg EC Tab PO SCH (14:15)
--- NOTE | 2018-02-14 15:38 | CARD ---
APPROVED REPORT EXAM: Two-dimensional and M-mode echocardiogram with Doppler and color Doppler. INDICATION Abnormal EKG/Arrhythmia 2D DIMENSIONS Left Atrium (2D)4.0 (1.6-4.0cm)IVSd1.3 (0.7-1.1cm) LVDd4.5 (3.9-5.9cm)PWd1.5 (0.7-1.1cm) LVDs3.1 (2.5-4.0cm)FS (%) 30.3 % LVEF (%)57.8 (>50%) M-Mode DIMENSIONS Aortic Root3.00 (2.2-3.7cm)Aortic Cusp Exc.1.90 (1.5-2.0cm) Aortic Valve AoV Peak Ayaxduqu834.0cm/Mer Peak GR.11mmHg Mitral Valve MV E Hfgassyo05.0cm/sMV A Wfrtlbmi84.2cm/sE/A ratio0.8 TDI E/Lateral E'0.0E/Medial E'0.0 Tricuspid Valve TR Peak [id number]/sRAP [id number] Peak Gr.14mmHg [id number] LEFT VENTRICLE The left ventricle is normal size. There is mild concentric left ventricular hypertrophy. The left ventricular function is normal.EF-60-65% There is normal LV segmental wall motion. Transmitral Doppler flow pattern is Grade III-reversible restrictive diastolic dysfunction. No left ventricle thrombus noted on this study. There is no ventricular septal defect visualized. There is no left ventricular aneurysm. There is no mass noted in the left ventricle. RIGHT VENTRICLE The right ventricle is borderline dilated. There is normal right ventricular wall thickness. The right ventricular systolic function is normal. AORTIC VALVE The aortic valve is normal in structure. There is trace to mild aortic regurgitation. There is no aortic valvular stenosis. There is no aortic valvular vegetation. MITRAL VALVE The mitral valve is thickened but opens well. Mitral regurgitation is trace. There is no mitral valve stenosis. There is no evidence of mitral valve prolapse. TRICUSPID VALVE The tricuspid valve is normal in structure. There is trace tricuspid regurgitation.RVS-24 mmof hg. There is no tricuspid valve stenosis. There is no tricuspid valve prolapse or vegetation. PULMONIC VALVE The pulmonary valve is normal in structure. Trivial PI There is no pulmonic valvular stenosis. GREAT VESSELS The aortic root is normal in size. The ascending aorta is normal in size. The pulmonary artery is normal. The IVC is normal in size and collapses >50% with inspiration. PERICARDIAL EFFUSION There is no pleural effusion. There is no pericardial effusion. <Conclusion> Normal Chamber Size. EF-60-65% There is trace to mild aortic regurgitation. Mitral regurgitation is trace. There is trace tricuspid regurgitation.RVS-24 mmof hg. Trivial PI The IVC is normal in size and collapses >50% with inspiration. There is no pericardial effusion. No Vegetation or thrombus noted.
--- NOTE | 2018-02-14 17:15 | CARDCATH ---
PROCEDURE DATE: LEFT HEART CATHETERIZATION INDICATIONS: The patient is 47-year-old -[place]ag[place] male who has a history of hypertension and diabetes mellitus for the past 7 years. He presented because of steady retrosternal chest heaviness, radiating to the left arm. MRI was ruled out. EKG was consistent with lateral ischemic T-wave inversion. Cardiac catheterization was recommended. The procedure and it's risks were fully explained to the patient, understood, and agreed for the procedure. PROCEDURE: After local infiltration with 1% lidocaine, a 6-Estonian sheath was placed in the right femoral artery. Left and right coronary angiography were performed with 6-Estonian JL-4 and JR-4 diagnostic catheters. Left ventriculogram and aortogram were performed with a 6-Estonian pigtail catheter. The patient tolerated the procedure well without any complications. ANGIOGRAPHIC FINDINGS: Selective injection of left coronary artery revealed left main to have 10% distal narrowing. The left main bifurcated into a medium-sized LAD and medium-sized circumflex artery. LAD had 40% narrowing its mid portion. The left coronary artery circulation was angiographically unremarkable. Selective injection of the right coronary artery revealed a medium-sized dominant vessel. This was angiographically unremarkable. Left ventriculogram was performed in the FLORES projection revealed normal wall motion, ejection fraction estimated at 55%. Aortography was performed in the IRENA projection, revealed normal aortic root size. There is no aortic insufficiency or dissection. CONCLUSION: Minimal coronary artery disease involving distal left main and the mid left anterior descending with normal left ventricular systolic function. RECOMMENDATIONS: chest pain is recommended. Andrew García MD
[2018-02-15] MEDS: Insulin Lispro (humaLOG) MEDIUM Coverage SC SCH ×5 (00:25→23:04)
[2018-02-15] MEDS: Pantoprazole 40 mg EC Tab PO SCH (06:28)
[2018-02-15 07:18] LABS: BASO # 0.04 K/mm3 (0.0-2.0); BASO % 0.4 % (0.0-3.0); EOS # 0.2 (0.0-0.7); EOS % 1.7 % (1.5-5.0); GRAN # 5.29 (1.4-6.5); GRAN % 58.9 % (50.0-68.0); HEMOGLOBIN 12.7 g/dL (14.0-18.0); LYMPH # 2.9 (1.2-3.4); MEAN CELL VOLUME 83.2 fl (80.0-105.0); MEAN CORPUSCULAR HEMOGLOBIN 28.8 pg (25.0-35.0); MEAN CORPUSCULAR HGB CONC 34.6 g/dl (31.0-37.0); MEAN PLATELET VOLUME 10.5 fl (7.0-11.0); MONO # 0.6 (0.1-0.6); RBC 4.41 10^6/uL (3.5-6.1); RED CELL DISTRIBUTION WIDTH 12.8 % (11.5-14.5)
[2018-02-15 07:43] LABS: ALBUMIN 3.1 g/dL (3.0-4.8); ALT/SGPT 24 U/L (7-56); AST/SGOT 33 U/L (17-59); BLOOD UREA NITROGEN 15 mg/dL (7-21); CALCIUM 8.3 mg/dL (8.4-10.5); GFR AFRICAN-AMERICAN > 60; GFR NON-AFRICAN AMERICAN > 60
[2018-02-15] MEDS: cefTRIAXone 1 gm 1 GM/100 ML BAG IVPB SCH (09:56)
--- NOTE | 2018-02-15 10:48 | CP.PCM.PN ---
<Eugene Orr - Last Filed: 02/15/18 11:02> Subjective - Date & Time of Evaluation Date of Evaluation: 02/15/18 Time of Evaluation: 10:00 - Subjective Subjective: Subjective: Patient seen and examined at bedside. Resting comfortably in bed. States he vomited 4 more times overnight and this morning. Emeiss is nonbloody but bilious in nature. Admits to experiencing bowel movement overnight, stool normal in color and caliber. Does not tolerate PO intake. Patient states chest pain has improved relative to baseline. Denies fever, chills, shortness of breath, diarrhea, constipation, and urinary symptoms. 12-point review of systems negative except as indicated in the HPI Physical Examination: - Constitutional Appears: Well, No Acute Distress - Head Exam Head Exam: ATRAUMATIC, NORMOCEPHALIC - Eye Exam Eye Exam: Normal appearance. absent: Scleral icterus - ENT Exam ENT Exam: Mucous Membranes Moist, Normal Exam - Neck Exam Neck Exam: Normal Inspection - Respiratory Exam Respiratory Exam: Clear to Auscultation Bilateral, NORMAL BREATHING PATTERN. absent: Rales, Rhonchi, Wheezes, Respiratory Distress - Cardiovascular Exam Cardiovascular Exam: REGULAR RHYTHM, +S1, +S2, left anterior chest wall tender to touch - GI/Abdominal Exam GI & Abdominal Exam: Soft, Normal Bowel Sounds. absent: Guarding, Rigid, Tenderness, Organomegaly - Extremities Exam Extremities Exam: no clubbing, no cyanosis absent: Joint Swelling - Neurological Exam Neurological Exam: Alert, Awake, Oriented x3 - Skin Skin Exam: Dry, Intact, Normal Color, Warm Assessment and Plan: Patient is a 47 year old male with a past medical history of hypertension and diabetes who was admitted for evaluation and treatment of chest pain. Chest Pain - ACS ruled out - c/w 81mg po daily - cardiology consulted- appreciate recommendations- cardiac catherization - no stent required minimal coronary artery disease involving distal left main and mid left LAD with normal ventricular systolic function. - CXR- No acute infiltrates. Note made of a small nodular density left lung base which could represent confluence of shadow, vessel on end or nipple shadow artifact however possibility of a tiny nodule not excluded - CT of chest- Unremarkable non-contrast enhanced CT of the chest - echo shows normal chamber size 60-65%, trace to mild aortic regurgitation, trace tricuspid regurg - UDS clean Intractable Nausea, Vomiting - c/w zofran prn QTc 450 - abdominal CT with PO contrast - There is an exophytic cyst upper pole right kidney. Vague infiltration changes within the perinephric fat bilaterally right greater than left. Rule out UTI. No evidence of nephrolithiasis or hydronephrosis. Hepatomegaly. Diverticulosis without radiographic evidence of acute diverticulitis - started patient on reglan - obstructive series ordered and pending - GI consulted- appreciate recommendations Hypothyroidism - start patient on levothyroxine Anemia - Hgb reviewed, trended, appreciated- stable s/p IVF - likely 2/2 IVF - monitor closely via CBC Hx of HTN - blood pressure- reviewed, trended, and appreciated- elevated 200s/100 - increased lisinopril to 20 mg PO daily - c/w metoprolol - prn hydralazine changed to q6 Hx of DM - ACHS - hold home insulin - ISS - carb consistent diet Prophylaxis - DVT- scds - GI- ppi started Patient case reviewed with and plan approved by attending physician, Dr. Bucio. Objective - Vital Signs/Intake and Output Vital Signs (last 24 hours): Temp Pulse Resp BP Pulse Ox 97 F L 110 H 18 164/99 H 97 02/15/18 06:00 02/15/18 08:14 02/15/18 06:00 02/15/18 10:00 02/14/18 22:00 Intake and Output: 02/15/18 02/15/18 06:59 18:59 Intake Total 120 Balance 120 - Medications Medications: Current Medications Acetaminophen (Tylenol 325mg Tab) 650 mg PO Q6H PRN PRN Reason: Pain, Mild (1-3) Last Admin: 02/14/18 16:44 Dose: 650 mg Aspirin (Ecotrin) 81 mg PO DAILY [facility] Last Admin: 02/15/18 09:56 Dose: 81 mg Hydralazine HCl (Apresoline) 10 mg IVP DAILY PRN PRN Reason: Systolic Blood Pressure Last Admin: 02/15/18 06:28 Dose: 10 mg Ceftriaxone Sodium (Rocephin 1 Gram Ivpb) 1 gm in 100 mls @ 100 mls/hr IVPB DAILY [facility] PRN Reason: Protocol Last Admin: 02/15/18 09:56 Dose: 100 mls/hr Insulin Human Lispro (Humalog Med) 0 units SC ACHS [facility] PRN Reason: Protocol Last Admin: 02/15/18 08:21 Dose: 1 units Lisinopril (Zestril) 10 mg PO DAILY [facility] Last Admin: 02/15/18 09:52 Dose: Not Given Metoprolol Tartrate (Lopressor) 25 mg PO BID [facility] Last Admin: 02/15/18 09:52 Dose: Not Given Ondansetron HCl (Zofran Inj) 4 mg IVP Q6H PRN PRN Reason: Nausea/Vomiting Last Admin: 02/15/18 07:56 Dose: 4 mg Pantoprazole Sodium (Protonix Ec Tab) 40 mg PO 0600 [facility] Last Admin: 02/15/18 06:28 Dose: 40 mg - Labs Labs: 02/15/18 06:30 02/15/18 06:30 PT 12.5 SECONDS (9.4-12.5) 02/12/18 17:55 INR 1.09 (0.93-1.08) H 02/12/18 17:55 APTT 33.8 Seconds (25.1-36.5) 02/12/18 17:55 <Natalie Bucio B - Last Filed: 02/15/18 17:07> Objective - Vital Signs/Intake and Output Vital Signs (last 24 hours): Temp Pulse Resp BP Pulse Ox 98.2 F 91 H 20 170/93 H 97 02/15/18 12:00 02/15/18 14:13 02/15/18 12:00 02/15/18 14:13 02/14/18 22:00 Intake and Output: 02/15/18 02/15/18 06:59 18:59 Intake Total 120 Balance 120 - Medications Medications: Current Medications Acetaminophen (Tylenol 325mg Tab) 650 mg PO Q6H PRN PRN Reason: Pain, Mild (1-3) Last Admin: 02/14/18 16:44 Dose: 650 mg Clonidine HCl (Catapres) 0.1 mg PO Q6H PRN PRN Reason: Other Insulin Human Lispro (Humalog Med) 0 units SC [facility] PRN Reason: Protocol Last Admin: 02/15/18 12:52 Dose: 1 units Levothyroxine Sodium (Synthroid) 25 mcg PO 0600 [facility] Last Admin: 02/15/18 11:04 Dose: 25 mcg Lisinopril (Zestril) 20 mg PO DAILY [facility] Metoclopramide HCl (Reglan) 10 mg IVP ACHS [facility] Metoprolol Tartrate (Lopressor) 25 mg PO BID [facility] Last Admin: 02/15/18 09:52 Dose: Not Given Ondansetron HCl (Zofran Inj) 4 mg IVP Q6H PRN PRN Reason: Nausea/Vomiting Last Admin: 02/15/18 07:56 Dose: 4 mg Pantoprazole Sodium (Protonix Inj) 40 mg IVP Q12 [facility] - Labs Labs: 02/15/18 06:30 02/15/18 06:30 PT 12.5 SECONDS (9.4-12.5) 02/12/18 17:55 INR 1.09 (0.93-1.08) H 02/12/18 17:55 APTT 33.8 Seconds (25.1-36.5) 02/12/18 17:55 Attending/Attestation - Attestation I have personally seen and examined this patient.: Yes I have fully participated in the care of the patient.: Yes I have reviewed all pertinent clinical information, including history, physical exam and plan: Yes Notes (Text): I have seen and examined patient with the resident at bedside. Agree with the above note with the following additions/ exceptions: Briefly this is 47 year old male with history of HTN, DM-2, diverticulosis, microscopic hematuria followed by urologist as an outpatient who came for evaluation of chest pain which has resolved. Cardiac enzymes were negative. EKG showed some non specific changes. Patient underwent cardiac cath which was normal. He had elevated d dimer therefore CT scan was done which was negative for PE. Echo was unremarkable. He complains of nausea and vomiting. He has no appetite. Continue zofran and add reglan. Obstructive series negative. Will consult GI. CT abdomen and pelvis showed diverticulosis without diverticulitis. Discontinue rocephin as urine culture is negative. Renal ultrasound is normal. Upon discharge The patient will follow up with PMD . Dr Natalie Bucio
[2018-02-15] MEDS: Levothyroxine 25 MCG TAB PO SCH (11:04)
--- NOTE | 2018-02-15 11:29 | RAD ---
HISTORY: intractable nausea and vomitting COMPARISON: No prior. FINDINGS: BOWEL: Normal. No obstruction. No free air. There is residual oral contrast in the colon. The colon is normal in caliber. BONES: Normal. OTHER FINDINGS: None. IMPRESSION: No active disease.
[2018-02-15] MEDS ORDERED: Barium Sulfate Susp 2.1% w/v, 2.0% w/w 450 mL Bottle PO ONE (12:04)
[2018-02-15] MEDS ORDERED: Iodixanol 320 MG/ML 100 ML BOTTLE IV ONE (12:06)
--- NOTE | 2018-02-15 14:28 | CT ---
PROCEDURE: CT Chest with contrast (Pulmonary Angiogram) HISTORY: r/o PE COMPARISON: None available. TECHNIQUE: Axial computed tomography images were obtained of the chest in the pulmonary arterial phase of enhancement. Coronal and sagittal reformatted images were created and reviewed. Intravenous contrast dose: 100 cc of Visipaque Radiation dose: Total exam DLP = 544 mGy-cm. This CT exam was performed using one or more of the following dose reduction techniques: Automated exposure control, adjustment of the mA and/or kV according to patient size, and/or use of iterative reconstruction technique. FINDINGS: PULMONARY ARTERIES: Unremarkable. No pulmonary embolism. AORTA: No acute findings. No thoracic aortic aneurysm. LUNGS: Unremarkable. No nodule, mass or pulmonary consolidation. PLEURAL SPACES: Unremarkable. No effusion or pneuomothorax. HEART: Unremarkable. No cardiomegaly. No significant pericardial effusion. LYMPH NODES: No lymphadenopathy. BONES, CHEST WALL: Unremarkable. No fracture or destructive lesion OTHER FINDINGS: Unremarkable. IMPRESSION: Unremarkable CT pulmonary angiogram. No pulmonary embolus.
--- NOTE | 2018-02-15 15:01 | CP.PCM.CON ---
History of Present Illness - History of Present Illness History of Present Illness: GI Consult note. Dr. Medellin 47yo M with PMHx of HTN, DM came in on 02/12 for evaluation of Chest pain. GI consulted for persistent vomiting. Patient states that he had 2 episodes of vomiting on the day he arrived to the ED. Vomiting described as non-bilious, non -bloody. States that he has never had similar symptoms in the past. Had cardiac cath yesterday, no lesions. Chest pain improved today. Denies any abdominal pain. Does report some chills, no fevers. States that his nausea and vomiting has progressively gotten worse over the past 3 days. Had 3 episodes yesterday and 5 episodes of vomiting today, and occur soon after he eats anything. He has been having regular bowel movements and the last one was yesterday, not dark or bloody. Denies any recent travel. Previous Colonoscopy at [facility] 5 years ago, unknown findings. Previous Endoscopy 5 years ago, unknown findings. PMD: [place] PMHx: HTN, DM PSHx: Denies Social Hx: Denies tobacco use, denies ETOH, denies illicit drugs Family Hx: Mother - Stomach CA. Maternal Grandfather - Throat CA. Paternal Grandfather - Colon CA Allergy: Mayonnaise, Yellow cheese Review of Systems - Review of Systems All systems: reviewed and no additional remarkable complaints except - Constitutional Constitutional: Chills. absent: Fever - Cardiovascular Cardiovascular: Chest Pain, Dyspnea - Respiratory Respiratory: absent: Dyspnea - Gastrointestinal Gastrointestinal: Nausea, Vomiting. absent: Abdominal Pain, Change in Bowel Habits, Hematemesis, Hematochezia - Genitourinary Genitourinary: absent: Difficulty Urinating, Dysuria Past Patient History - Infectious Disease Hx of Infectious Diseases: None - Tetanus Immunizations Tetanus Immunization: Unknown - Past Medical History & Family History Past Family History: Reviewed and not pertinent - Past Social History Smoking Status: Never Smoked - CARDIAC Hx Hypertension: Yes - PULMONARY Hx Respiratory Disorders: No - NEUROLOGICAL Hx Neurological Disorder: No (SYNCOPAL EPISODE 4-5 YRS AGO AND TODAY 14) - HEENT Hx HEENT Problems: No - RENAL Hx Chronic Kidney Disease: No - ENDOCRINE/METABOLIC Hx Diabetes Mellitus Type 1: Yes Hx Hyperthyroidism: Yes - HEMATOLOGICAL/ONCOLOGICAL Hx Blood Disorders: No - INTEGUMENTARY Hx Dermatological Problems: No (TATTOOS) - MUSCULOSKELETAL/RHEUMATOLOGICAL Hx Back Pain: Yes Hx Falls: Yes - GASTROINTESTINAL Hx Gastroesophageal Reflux: Yes - GENITOURINARY/GYNECOLOGICAL Hx Genitourinary Disorders: No - PSYCHIATRIC Hx Psychophysiologic Disorder: No - SURGICAL HISTORY Hx Surgeries: Yes Hx Musculoskeletal Surgery: Yes Meds Allergies/Adverse Reactions: Allergies Allergy/AdvReac Type Severity Reaction Status Date / Time ornelas Allergy Severe ANAPHYLAXIS Uncoded 02/12/18 17:27 yellow cheese Allergy Severe ANAPHYLAXIS Uncoded 02/12/18 17:27 - Medications Medications: Current Medications Acetaminophen (Tylenol 325mg Tab) 650 mg PO Q6H PRN PRN Reason: Pain, Mild (1-3) Last Admin: 02/14/18 16:44 Dose: 650 mg Clonidine HCl (Catapres) 0.1 mg PO Q6H PRN PRN Reason: Other Insulin Human Lispro (Humalog Med) 0 units SC ACHS [facility] PRN Reason: Protocol Last Admin: 02/15/18 12:52 Dose: 1 units Levothyroxine Sodium (Synthroid) 25 mcg PO 0600 [facility] Last Admin: 02/15/18 11:04 Dose: 25 mcg Lisinopril (Zestril) 20 mg PO DAILY [facility] Metoclopramide HCl (Reglan) 5 mg PO 0600,1130,1630,2200 [facility] Last Admin: 02/15/18 12:52 Dose: 5 mg Metoprolol Tartrate (Lopressor) 25 mg PO BID [facility] Last Admin: 02/15/18 09:52 Dose: Not Given Ondansetron HCl (Zofran Inj) 4 mg IVP Q6H PRN PRN Reason: Nausea/Vomiting Last Admin: 02/15/18 07:56 Dose: 4 mg Pantoprazole Sodium (Protonix Ec Tab) 40 mg PO 0600 [facility] Last Admin: 02/15/18 06:28 Dose: 40 mg Physical Exam - Constitutional Appears: Well, Non-toxic, No Acute Distress - Head Exam Head Exam: ATRAUMATIC, NORMAL INSPECTION, NORMOCEPHALIC - Eye Exam Eye Exam: EOMI, Normal appearance - ENT Exam ENT Exam: Mucous Membranes Moist - Respiratory Exam Respiratory Exam: NORMAL BREATHING PATTERN. absent: Accessory Muscle Use, Respiratory Distress - Cardiovascular Exam Cardiovascular Exam: RRR. absent: JVD - GI/Abdominal Exam GI & Abdominal Exam: Soft. absent: Distended, Firm, Guarding, Rebound, Rigid Additional comments: mild epigastric tenderness. soft. non distended. No rebound, no guarding. - Extremities Exam Extremities exam: Positive for: normal inspection. Negative for: calf tenderness - Neurological Exam Neurological exam: Alert, Oriented x3 - Skin Skin Exam: Dry, Intact, Normal Color, Warm Results - Vital Signs Recent Vital Signs: Last Vital Signs Temp 98.2 F 02/15/18 12:00 Pulse 91 H 02/15/18 14:13 Resp 20 02/15/18 12:00 BP 170/93 H 02/15/18 14:13 Pulse Ox 97 02/14/18 22:00 - Labs Result Diagrams: 02/15/18 06:30 02/15/18 06:30 Labs: Laboratory Results - last 24 hr 02/14/18 02/15/18 02/15/18 16:45 06:30 06:30 WBC 9.0 RBC 4.41 Hgb 12.7 L Hct 36.7 L MCV 83.2 MCH 28.8 MCHC 34.6 RDW 12.8 Plt Count 313 MPV 10.5 Gran % 58.9 Lymph % (Auto) 32.0 [place] % (Auto) 7.0 H Eos % (Auto) 1.7 Baso % (Auto) 0.4 Gran # 5.29 Lymph # (Auto) 2.9 [place] # (Auto) 0.6 Eos # (Auto) 0.2 Baso # (Auto) 0.04 Sodium 141 Potassium 3.8 Chloride 107 Carbon Dioxide 27 Anion Gap 11 BUN 15 Creatinine 1.1 Est GFR ( Amer) > 60 Est GFR (Non-Af Amer) > 60 POC Glucose (mg/dL) 182 H Random Glucose 171 H Calcium 8.3 L Total Bilirubin 0.4 AST 33 ALT 24 Alkaline Phosphatase 54 Total Protein 6.3 Albumin 3.1 Globulin 3.1 Albumin/Globulin Ratio 1.0 L 02/15/18 02/15/18 07:40 11:56 WBC RBC Hgb Hct MCV MCH MCHC RDW Plt Count MPV Gran % Lymph % (Auto) [place] % (Auto) Eos % (Auto) Baso % (Auto) Gran # Lymph # (Auto) [place] # (Auto) Eos # (Auto) Baso # (Auto) Sodium Potassium Chloride Carbon Dioxide Anion Gap BUN Creatinine Est GFR ( Amer) Est GFR (Non-Af Amer) POC Glucose (mg/dL) 180 H 162 H Random Glucose Calcium Total Bilirubin AST ALT Alkaline Phosphatase Total Protein Albumin Globulin Albumin/Globulin Ratio Assessment & Plan - Assessment and Plan (Free Text) Assessment: 47yo M with PMHx of DM, HTN here for evaluation of chest pain, nausea and vomiting. - CT scans noted. Diverticulosis. Hepatomegaly. Exophytic cyst at upper pole of right kidney. - Abd Xray: No obstruction Plan: - Clear Liquid Diet - NPOmn - To Endo for EGD tomorrow, 02/16 - f/u Abdominal U/S - Protonix 40mg IV q12 - Add Reglan 10mg IV ACHS Further recs as per Dr. Vignesh Foster PGY1
--- NOTE | 2018-02-15 18:50 | PN ---
DATE: FOLLOWUP SUBJECTIVE: The patient is still complaining of mild chest pain. He is experiencing nausea and vomiting. PHYSICAL EXAMINATION: VITAL SIGNS: Blood pressure 170/93, heart rate 80, temperature , respirations 20. HEENT: Normocephalic. CHEST: Clear. HEART: S1 and S2, regular. EXTREMITIES: No hematoma. No edema. LABORATORY DATA: SMA-7: Sodium 141, potassium 3.8, chloride 107, CO2 of 27. Glucose 171. BUN 15, creatinine 1.1. Today's hemoglobin and hematocrit 12.7 and 36.7, white counts and platelet counts are within normal limits. D-dimer was 316. ASSESSMENT: 1. Chest pain, myocardial infarction ruled out. 2. Rule out pulmonary infection. 3. Abdominal pain with nausea and vomiting. 4. Uncontrolled hypertension. 5. Hypothyroidism. RECOMMENDATIONS: chest CT angio to rule out pulmonary embolism. Continue . Discontinue aspirin. Continue Lopressor, IV Reglan, Synthroid, and Zestril. Andrew García MD
[2018-02-16] MEDS: Levothyroxine 25 MCG TAB PO SCH (06:28)
[2018-02-16 06:53] LABS: ALBUMIN 2.9 g/dL (3.0-4.8); ALT/SGPT 26 U/L (7-56); AST/SGOT 22 U/L (17-59); BLOOD UREA NITROGEN 12 mg/dL (7-21); CALCIUM 8.1 mg/dL (8.4-10.5); GFR AFRICAN-AMERICAN > 60; GFR NON-AFRICAN AMERICAN > 60
[2018-02-16 06:59] LABS: BASO # 0.02 K/mm3 (0.0-2.0); BASO % 0.3 % (0.0-3.0); EOS # 0.2 (0.0-0.7); GRAN # 4.76 (1.4-6.5); GRAN % 62.3 % (50.0-68.0); HEMOGLOBIN 11.5 g/dL (14.0-18.0); LYMPH # 2.1 (1.2-3.4); LYMPH % 27.4 % (22.0-35.0); MEAN CELL VOLUME 83.2 fl (80.0-105.0); MEAN CORPUSCULAR HEMOGLOBIN 28.9 pg (25.0-35.0); MEAN CORPUSCULAR HGB CONC 34.7 g/dl (31.0-37.0); MEAN PLATELET VOLUME 10.4 fl (7.0-11.0); MONO # 0.6 (0.1-0.6); RBC 3.98 10^6/uL (3.5-6.1); RED CELL DISTRIBUTION WIDTH 12.8 % (11.5-14.5); WHITE BLOOD COUNT 7.6 10^3/ul (4.5-11.0)
[2018-02-16] MEDS: Insulin Lispro (humaLOG) MEDIUM Coverage SC SCH ×4 (08:30→21:39)
--- NOTE | 2018-02-16 10:12 | CP.PCM.PN ---
<Eugene Orr - Last Filed: 02/16/18 11:39> Subjective - Date & Time of Evaluation Date of Evaluation: 02/16/18 Time of Evaluation: 08:15 - Subjective Subjective: Subjective: Patient seen and examined at bedside. Resting comfortably in bed. States he did not experience emesis overnight however he did vomit bilious material x 1 this morning. Admits to experiencing bowel movement. Patient states chest pain has improved relative to baseline. Denies fever, chills, shortness of breath, diarrhea, constipation, and urinary symptoms. 12-point review of systems negative except as indicated in the HPI Physical Examination: - Constitutional Appears: Well, No Acute Distress - Head Exam Head Exam: ATRAUMATIC, NORMOCEPHALIC - Eye Exam Eye Exam: Normal appearance. absent: Scleral icterus - ENT Exam ENT Exam: Mucous Membranes Moist, Normal Exam - Neck Exam Neck Exam: Normal Inspection - Respiratory Exam Respiratory Exam: Clear to Auscultation Bilateral, NORMAL BREATHING PATTERN. absent: Rales, Rhonchi, Wheezes, Respiratory Distress - Cardiovascular Exam Cardiovascular Exam: REGULAR RHYTHM, +S1, +S2, left anterior chest wall tender to touch - GI/Abdominal Exam GI & Abdominal Exam: Soft, Normal Bowel Sounds. absent: Guarding, Rigid, Tenderness, Organomegaly - Extremities Exam Extremities Exam: no clubbing, no cyanosis absent: Joint Swelling - Neurological Exam Neurological Exam: Alert, Awake, Oriented x3 - Skin Skin Exam: Dry, Intact, Normal Color, Warm Assessment and Plan: Patient is a 47 year old male with a past medical history of hypertension and diabetes who was admitted for evaluation and treatment of chest pain. Chest Pain - ACS ruled out - c/w 81mg po daily - cardiology consulted- appreciate recommendations- cardiac catherization - no stent required minimal coronary artery disease involving distal left main and mid left LAD with normal ventricular systolic function. - CXR- No acute infiltrates. Note made of a small nodular density left lung base which could represent confluence of shadow, vessel on end or nipple shadow artifact however possibility of a tiny nodule not excluded - CT of chest- Unremarkable non-contrast enhanced CT of the chest - echo shows normal chamber size 60-65%, trace to mild aortic regurgitation, trace tricuspid regurg - UDS clean Intractable Nausea, Vomiting - c/w zofran prn QTc 450 - abdominal CT with PO contrast - There is an exophytic cyst upper pole right kidney. Vague infiltration changes within the perinephric fat bilaterally right greater than left. Rule out UTI. No evidence of nephrolithiasis or hydronephrosis. Hepatomegaly. Diverticulosis without radiographic evidence of acute diverticulitis - c/w patient on reglan - obstructive series- no obstruction - abdominal ultrasound- completed, official read pending - GI consulted- appreciate recommendations- EGD pending on 02/16/2018 Hypothyroidism - c/w levothyroxine Anemia - Hgb reviewed, trended, appreciated- downtrending - likely 2/2 IVF - monitor closely via CBC Hx of HTN - blood pressure- reviewed, trended, and appreciated- elevated 150s/80 - c/w lisinopril to 20 mg PO daily - c/w metoprolol - stated patient on clonidine Hx of DM - ACHS - hold home insulin - ISS - carb consistent diet Prophylaxis - DVT- scds - GI- ppi started Patient case reviewed with and plan approved by attending physician, Dr. Bucio. Objective - Vital Signs/Intake and Output Vital Signs (last 24 hours): Temp Pulse Resp BP Pulse Ox 98.1 F 88 20 154/80 H 96 02/16/18 05:39 02/16/18 06:28 02/16/18 05:39 02/16/18 06:28 02/16/18 05:39 Intake and Output: 02/16/18 02/16/18 06:59 18:59 Intake Total 360 Balance 360 - Medications Medications: Current Medications Acetaminophen (Tylenol 325mg Tab) 650 mg PO Q6H PRN PRN Reason: Pain, Mild (1-3) Last Admin: 02/14/18 16:44 Dose: 650 mg Clonidine HCl (Catapres) 0.1 mg PO Q6H PRN PRN Reason: Other Last Admin: 02/16/18 06:28 Dose: 0.1 mg Insulin Human Lispro (Humalog Med) 0 units SC ACHS [facility] PRN Reason: Protocol Last Admin: 02/16/18 08:30 Dose: Not Given Levothyroxine Sodium (Synthroid) 25 mcg PO 0600 [facility] Last Admin: 02/16/18 06:28 Dose: 25 mcg Lisinopril (Zestril) 20 mg PO DAILY [facility] Metoclopramide HCl (Reglan) 10 mg IVP ACHS [facility] Last Admin: 02/16/18 08:30 Dose: 10 mg Metoprolol Tartrate (Lopressor) 25 mg PO BID [facility] Last Admin: 02/15/18 17:33 Dose: 25 mg Ondansetron HCl (Zofran Inj) 4 mg IVP Q6H PRN PRN Reason: Nausea/Vomiting Last Admin: 02/15/18 07:56 Dose: 4 mg Pantoprazole Sodium (Protonix Inj) 40 mg IVP Q12 [facility] Last Admin: 02/15/18 23:08 Dose: 40 mg - Labs Labs: 02/16/18 06:25 02/16/18 06:25 PT 12.5 SECONDS (9.4-12.5) 02/12/18 17:55 INR 1.09 (0.93-1.08) H 02/12/18 17:55 APTT 33.8 Seconds (25.1-36.5) 02/12/18 17:55 <Natalie Bucio - Last Filed: 02/16/18 14:58> Objective - Vital Signs/Intake and Output Vital Signs (last 24 hours): Temp Pulse Resp BP Pulse Ox 98.1 F 72 17 189/104 H 96 02/16/18 14:30 02/16/18 14:30 02/16/18 14:30 02/16/18 14:30 02/16/18 14:30 Intake and Output: 02/16/18 02/16/18 06:59 18:59 Intake Total 360 Balance 360 - Medications Medications: Current Medications Acetaminophen (Tylenol 325mg Tab) 650 mg PO Q6H PRN PRN Reason: Pain, Mild (1-3) Last Admin: 02/14/18 16:44 Dose: 650 mg Clonidine HCl (Catapres) 0.1 mg PO Q6H PRN PRN Reason: Other Last Admin: 02/16/18 06:28 Dose: 0.1 mg Insulin Human Lispro (Humalog Med) [address] [facility] PRN Reason: Protocol Last Admin: 02/16/18 11:48 Dose: Not Given Levothyroxine Sodium (Synthroid) 25 mcg PO 0600 [facility] Last Admin: 02/16/18 06:28 Dose: 25 mcg Lisinopril (Zestril) 20 mg PO DAILY [facility] Last Admin: 02/16/18 09:59 Dose: 20 mg Metoclopramide HCl (Reglan) 10 mg IVP ACHS [facility] Last Admin: 02/16/18 12:01 Dose: 10 mg Metoprolol Tartrate (Lopressor) 25 mg PO BID [facility] Last Admin: 02/16/18 10:00 Dose: 25 mg Ondansetron HCl (Zofran Inj) 4 mg IVP Q6H PRN PRN Reason: Nausea/Vomiting Last Admin: 02/15/18 07:56 Dose: 4 mg Pantoprazole Sodium (Protonix Inj) 40 mg IVP Q12 [facility] Last Admin: 02/16/18 09:57 Dose: 40 mg - Labs Labs: 02/16/18 06:25 02/16/18 06:25 PT 12.5 SECONDS (9.4-12.5) 02/12/18 17:55 INR 1.09 (0.93-1.08) H 02/12/18 17:55 APTT 33.8 Seconds (25.1-36.5) 02/12/18 17:55 Attending/Attestation - Attestation I have personally seen and examined this patient.: Yes I have fully participated in the care of the patient.: Yes I have reviewed all pertinent clinical information, including history, physical exam and plan: Yes Notes (Text): I have seen and examined patient with the resident at bedside. Agree with the above note with the following additions/ exceptions: Briefly this is 47 year old male with history of HTN, DM-2, diverticulosis, microscopic hematuria followed by urologist as an outpatient who came for evaluation of chest pain which has resolved. Cardiac enzymes were negative. EKG showed some non specific changes. Patient underwent cardiac cath which was normal. He had elevated d dimer therefore CT scan was done which was negative for PE. Echo was unremarkable. He complains of nausea and vomiting. He has no appetite. Had on episode of vomiting today. He is npo for possible endoscopy today. Continue zofran and reglan. Obstructive series negative. GI consult appreciated. CT abdomen and pelvis showed diverticulosis without diverticulitis. Renal ultrasound is normal. Upon discharge The patient will follow up with PMD .
--- NOTE | 2018-02-16 11:22 | US ---
HISTORY: epigastric pain, N/V COMPARISON: None. TECHNIQUE: Sonographic evaluation of the abdomen. FINDINGS: LIVER: Measures 18.8 cm. Normal echogenicity of the liver parenchyma. No mass. No intrahepatic bile duct dilatation. GALLBLADDER: Unremarkable. No gallstones. COMMON BILE DUCT: Measures 2.6 mm. No stones. No dilatation. PANCREAS: Unremarkable as visualized. No mass. No ductal dilatation. RIGHT KIDNEY: Measures 12.6 x 5.8 x 7.1cm. Normal echogenicity. No calculus, mass, or hydronephrosis. 2.5 cm simple cyst LEFT KIDNEY: Measures 12.4 x 7.5 x 8.6cm. Normal echogenicity. No calculus, mass, or hydronephrosis. SPLEEN: Normal in size and contour. No mass. 10.7 x 4.0 x 4.0 cm AORTA: No aneurysmal dilatation. IVC: Unremarkable. OTHER FINDINGS: None. IMPRESSION: Unremarkable abdominal sonogram.
--- NOTE | 2018-02-16 14:03 | PN ---
DATE: SUBJECTIVE: The patient is still experiencing nausea and slight vomiting. PHYSICAL EXAMINATION: VITAL SIGNS: Blood pressure 160/95, heart rate 77, temperature 98.1, respiration 20. HEENT: Normocephalic. CHEST: Clear. HEART: S1 and S2 regular. EXTREMITIES: No edema. LABORATORY DATA: Hemoglobin and hematocrit 11.5 and 33.1, white count and platelet count are within normal limit. Today's SMA-7 is within normal limit except for glucose 162, calcium below normal 8.1. Chest CT angio performed yesterday unremarkable. CT pulmonary angiogram, no pulmonary embolus. Abdominal ultrasound, unremarkable study. ASSESSMENT: 1. Chest pain, myocardial infarction is ruled out. 2. Uncontrolled hypertension. 3. Rule out gastritis or peptic ulcer disease. 4. Mild anemia. 5. Hypothyroidism. 6. Uncontrolled diabetes mellitus. CONDITIONS: Continue clonidine 0.1 mg every 6 hours p.r.n., continue Lopressor 25 mg twice a day, Protonix 40 mg intravenously twice a day, Zestril 20 mg once a day, Synthroid 25 mcg once a day. The patient will undergo upper endoscopy. Andrew García MD
[2018-02-16] MEDS ORDERED: Propofol 10 mg/ml Inj (20 ML) ONE (15:08)
[2018-02-16] MEDS ORDERED: Midazolam 2 MG/2 ML VIAL ONE (15:09)
[2018-02-16 15:40] LABS: ARTERIAL BLOOD GAS HCO3 25.9 mmol/L (21-28); ARTERIAL BLOOD GAS HEMOGLOBIN 11.6 g/dL (11.7-17.4); ARTERIAL BLOOD GAS O2 CAPACITY 15.9 mL/dl (16-24); ARTERIAL BLOOD GAS O2 SAT 94.5 % (95-98); ARTERIAL BLOOD GAS PCO2 59 mm/Hg (35-45); ARTERIAL BLOOD GAS PH 7.25 (7.35-7.45); ARTERIAL BLOOD GAS TCO2 27.7 mmol.L (22-28)
[2018-02-16] MEDS ORDERED: Sodium Chloride 0.9% 1,000 ML IV SCH (16:30)
--- NOTE | 2018-02-16 16:40 | PCM.RRT ---
<Christie Martinez - Last Filed: 02/16/18 17:11> [employer] Nurse Assessment - Situation Date: 02/16/18 Time [employer] was called: 15:21 [employer] Responder Arrival Time: 15:23 [employer] Location:: Endoscopy Room Number: rm 1 [employer] Reason for Call: O2 Saturation below 90% [employer] Called By: RN, Physician - IV IV Inserted during [employer]?: No - Respiratory Oxygen Delivery Method: Intubated Oxygen Flow Rate: 15 Received Nebulizer Treatments:: No Was the Patient Ventilated with Bag/Mask 100% O2?: Yes Secretions Suctioned?: Yes Was the Patient Intubated?: Yes Was the Patient Placed on a Ventilator?: No (BAGGED WITH 100%) - Medication Medications Administered During [employer]: LABETALOL 10 MG/2ML@15:28. DIPROVAN 10 MG 15:35 - Diagnostic Test Ordered EKG: Yes Chest X-Ray: Yes Other Diagnostic Test Ordered: ABG - Stat Labs Ordered [employer] Stat Labs Ordered: ABG CPR started during [employer]?: No - Vital Signs Vital Sign: Rapid Response Vital Sign Blood Pressure 117/73 Pulse Rate 55 Respiratory Rate 10 Oxygen Saturation 20 - Finger Stick Blood Glucose Finger Stick Blood Glucose: 185 - Time [employer] Ended Time [employer] Ended: 15:55 - Vital Signs at end of [employer] Vital Signs at end of [employer]: Rapid Response End Vital Sign Blood Pressure 150/90 Pulse Rate 88 Respiratory Rate 16 Temperature 98.7 F O2 Sat by Pulse Oximetry 96 - Recommendations Notifications: Attending Physician I.Reason for [employer] - A) Acute Change in Patient: Subjective: PGY-[address] Bucio CC: Hypoxia During the endoscopy, pt SaO2 declines. The scope was taken out, patient was ventilated via bag valve mask with 100 O2. Not effective, SaO2 in 20s, therefore pt was intubated with 7mm ET tube. His heart rate was noted to decrease to 60s. Pt's BP was 180/110s. Labetalol was given. Pt was intubated with BVM on 100% by anesthesiologist. Pt slowly woke up from anesthesia. Pt appears to follow command, move all extremities, awake and alert. Pt was extubated by anesthesiologist. Pt was transferred to PACU. - Respiratory Oxygen Delivery Method: Intubated Oxygen Flow Rate: 15 - Constitutional Appears: Other Additional Comments: intubated - Head Head Exam: ATRAUMATIC, NORMAL INSPECTION, NORMOCEPHALIC - Eyes Eye Exam: EOMI, Normal appearance - Respiratory Exam Respiratory Exam: Decreased Breath Sounds (L) - Cardiovascular Exam Cardiovascular Exam: REGULAR RHYTHM, +S1, +S2 - GI/Abdominal Exam GI & Abdominal Exam: Soft. absent: Distended - Neurological Exam Additional exam: Intubated with propofol - Extremities Exam Extremities Exam: Normal Capillary Refill Plan - Assessment of Findings&Treatment Plan Hypoxemia and Hypercapnia s/p intubation and extubation prior to PACU Acute respiratory acidosis Likely due to tougue obstruction in the setting of anesthesia induced hypopnea - CXR to confirm ET placement - VS stable - EKG NSR with TWI in lateral leads - CBC, CMP, mg, javed, cardiac iso, bnp - Notified Family - f/u PACU protocol - 2L O2 during transit <Natalie Bucio - Last Filed: 02/17/18 15:32> [employer] Nurse Assessment - Vital Signs Vital Sign: Rapid Response Vital Sign Blood Pressure 117/73 Pulse Rate 55 Respiratory Rate 10 Oxygen Saturation 20 - Vital Signs at end of [employer] Vital Signs at end of [employer]: Rapid Response End Vital Sign Blood Pressure 150/90 Pulse Rate 88 Respiratory Rate 16 Temperature 98.7 F O2 Sat by Pulse Oximetry 96 Attending/Attestation - Attestation I have personally seen and examined this patient.: Yes I have fully participated in the care of the patient.: Yes I have reviewed all pertinent clinical information, including history, physical exam and plan: Yes Notes (Text): I have seen and examined the patient at bedside. Patient is intubated and will be transferred to ICU.
--- NOTE | 2018-02-16 17:06 | RAD ---
HISTORY: Intubated COMPARISON: No prior. FINDINGS: In situ ETT, tip of which lies approximately 3.4 cm above compa. LUNGS: Low lung volumes with crowded bronchovascular markings and bibasilar atelectasis more so on the left side. The possibility of developing lower lobe infiltrate could be excluded followup radiographs. The central pulmonary vasculature is also slightly increased which may be secondary to low lung volumes. PLEURA: No significant pleural effusion identified, no pneumothorax apparent. CARDIOVASCULAR: Heart remains enlarged OSSEOUS STRUCTURES: No significant abnormalities. VISUALIZED UPPER ABDOMEN: Normal. OTHER FINDINGS: None. IMPRESSION: Low lung volumes with crowded bronchovascular markings and bibasilar atelectasis more so on the left side. The possibility of developing lower lobe infiltrate could be excluded followup radiographs. The central pulmonary vasculature is also slightly increased which may be secondary to low lung volumes.
[2018-02-16 17:34] LABS: BASO # 0.03 K/mm3 (0.0-2.0); BASO % 0.4 % (0.0-3.0); EOS # 0.1 (0.0-0.7); GRAN # 6.16 (1.4-6.5); GRAN % 75.1 % (50.0-68.0); LYMPH # 1.4 (1.2-3.4); LYMPH % 16.7 % (22.0-35.0); MEAN CORPUSCULAR HEMOGLOBIN 29.1 pg (25.0-35.0); MEAN CORPUSCULAR HGB CONC 35.1 g/dl (31.0-37.0); MEAN PLATELET VOLUME 10.2 fl (7.0-11.0); MONO # 0.6 (0.1-0.6); MONO % 6.8 % (1.0-6.0); RBC 4.12 10^6/uL (3.5-6.1); RED CELL DISTRIBUTION WIDTH 12.7 % (11.5-14.5); WHITE BLOOD COUNT 8.2 10^3/ul (4.5-11.0)
[2018-02-16 17:41] LABS: ALB/GLOB RATIO 1.1 (1.1-1.8); ALBUMIN 3.1 g/dL (3.0-4.8); ALT/SGPT 28 U/L (7-56); AST/SGOT 25 U/L (17-59); BLOOD UREA NITROGEN 13 mg/dL (7-21); CALCIUM 8.2 mg/dL (8.4-10.5); GFR AFRICAN-AMERICAN > 60; GFR NON-AFRICAN AMERICAN > 60
[2018-02-16 17:53] LABS: B-TYPE NATRIURETIC PEPTIDE 580 pg/mL (0-450); TROPONIN I 0.03 ng/mL
--- NOTE | 2018-02-16 18:22 | CARD ---
APPROVED REPORT EKG Measurement Heart [id number] <Conclusion> Normal sinus rhythm T wave abnormality, consider lateral ischemia Prolonged QT Abnormal ECG
[2018-02-17] MEDS: Levothyroxine 25 MCG TAB PO SCH (06:36)
[2018-02-17 07:00] LABS: BASO # 0.02 K/mm3 (0.0-2.0); BASO % 0.3 % (0.0-3.0); EOS # 0.2 (0.0-0.7); EOS % 2.1 % (1.5-5.0); GRAN # 4.77 (1.4-6.5); GRAN % 65.5 % (50.0-68.0); HEMOGLOBIN 11.3 g/dL (14.0-18.0); LYMPH # 1.9 (1.2-3.4); LYMPH % 25.4 % (22.0-35.0); MEAN CELL VOLUME 82.4 fl (80.0-105.0); MEAN CORPUSCULAR HEMOGLOBIN 28.8 pg (25.0-35.0); MEAN CORPUSCULAR HGB CONC 34.9 g/dl (31.0-37.0); MEAN PLATELET VOLUME 10.2 fl (7.0-11.0); MONO # 0.5 (0.1-0.6); MONO % 6.7 % (1.0-6.0); RBC 3.93 10^6/uL (3.5-6.1); RED CELL DISTRIBUTION WIDTH 12.6 % (11.5-14.5); WHITE BLOOD COUNT 7.3 10^3/ul (4.5-11.0)
--- NOTE | 2018-02-17 07:24 | CP.PCM.PN ---
<Eugene Orr - Last Filed: 02/17/18 11:01> Subjective - Date & Time of Evaluation Date of Evaluation: 02/17/18 Time of Evaluation: 10:00 - Subjective Subjective: Subjective: Patient seen and examined at bedside. Resting comfortably in bed. [employer] called yesterday during the endoscopy because patient SaO2 and HR declined. Patient was intubated by anesthesiologist. As patient awoke from anesthesia he was able to respond to verbal stimuli, follow command, move all extremities. Pt was extubated by anesthesiologist and transferred to to the PACU for recovery. After recovery he was transferred to his room. No complications thereafter. Admits to baseline nausea without emesis. Admits to sore throat with yellow phelgm production. Denies fever, chills, shortness of breath, diarrhea, constipation, and urinary symptoms. 12-point review of systems negative except as indicated in the HPI Physical Examination: - Constitutional Appears: Well, No Acute Distress - Head Exam Head Exam: ATRAUMATIC, NORMOCEPHALIC - Eye Exam Eye Exam: Normal appearance. absent: Scleral icterus - ENT Exam ENT Exam: Mucous Membranes Moist, Normal Exam - Neck Exam Neck Exam: Normal Inspection - Respiratory Exam Respiratory Exam: Clear to Auscultation Bilateral, NORMAL BREATHING PATTERN. absent: Rales, Rhonchi, Wheezes, Respiratory Distress - Cardiovascular Exam Cardiovascular Exam: REGULAR RHYTHM, +S1, +S2, left anterior chest wall tender to touch - GI/Abdominal Exam GI & Abdominal Exam: Soft, Normal Bowel Sounds. absent: Guarding, Rigid, Tenderness, Organomegaly - Extremities Exam Extremities Exam: no clubbing, no cyanosis absent: Joint Swelling - Neurological Exam Neurological Exam: Alert, Awake, Oriented x3 - Skin Skin Exam: Dry, Intact, Normal Color, Warm Assessment and Plan: Patient is a 47 year old male with a past medical history of hypertension and diabetes who was admitted for evaluation and treatment of chest pain. Intractable Nausea, Vomiting - c/w zofran prn QTc 450 - abdominal CT with PO contrast - There is an exophytic cyst upper pole right kidney. Vague infiltration changes within the perinephric fat bilaterally right greater than left. Rule out UTI. No evidence of nephrolithiasis or hydronephrosis. Hepatomegaly. Diverticulosis without radiographic evidence of acute diverticulitis - c/w patient on reglan - obstructive series- no obstruction - abdominal ultrasound- completed, official read pending - GI consulted- appreciate recommendations- EGD on 02/16/2018 stopped due to oxygen desaturation/bradycardia, repeat EGD under intubation Chest Pain - ACS ruled out - c/w 81mg po daily - cardiology consulted- appreciate recommendations- cardiac catherization - no stent required minimal coronary artery disease involving distal left main and mid left LAD with normal ventricular systolic function. - CXR- No acute infiltrates. Note made of a small nodular density left lung base which could represent confluence of shadow, vessel on end or nipple shadow artifact however possibility of a tiny nodule not excluded - CT of chest- Unremarkable non-contrast enhanced CT of the chest - echo 02/14/18 shows normal chamber size 60-65%, trace to mild aortic regurgitation, trace tricuspid regurg - UDS clean Hypothyroidism - c/w levothyroxine Anemia - Hgb reviewed, trended, appreciated- downtrending - monitor closely via CBC Hx of HTN - blood pressure- reviewed, trended, and appreciated- elevated 160s/90 - c/w lisinopril to 20 mg PO daily - c/w metoprolol - stated patient on clonidine Hx of DM - ACHS - hold home insulin - ISS - carb consistent diet Prophylaxis - DVT- scds - GI- ppi started Patient case reviewed with and plan approved by attending physician, Dr. Bucio. Objective - Vital Signs/Intake and Output Vital Signs (last 24 hours): Temp Pulse Resp BP Pulse Ox 98.3 F 80 18 148/81 97 02/17/18 06:00 02/17/18 06:00 02/17/18 06:00 02/17/18 06:00 02/17/18 06:00 Intake and Output: 02/17/18 02/17/18 06:59 18:59 Intake Total 620 Balance 620 - Medications Medications: Current Medications Acetaminophen (Tylenol 325mg Tab) 650 mg PO Q6H PRN PRN Reason: Pain, Mild (1-3) Last Admin: 02/14/18 16:44 Dose: 650 mg Clonidine HCl (Catapres) 0.1 mg PO Q6H PRN PRN Reason: Other Last Admin: 02/17/18 00:07 Dose: 0.1 mg Insulin Human Lispro (Humalog Med) 0 units SC ACHS [facility] PRN Reason: Protocol Last Admin: 02/16/18 21:39 Dose: Not Given Levothyroxine Sodium (Synthroid) 25 mcg PO 0600 [facility] Last Admin: 02/17/18 06:36 Dose: 25 mcg Lisinopril (Zestril) 20 mg PO DAILY [facility] Last Admin: 02/16/18 09:59 Dose: 20 mg Metoclopramide HCl (Reglan) 10 mg IVP ACHS [facility] Last Admin: 02/16/18 21:38 Dose: 10 mg Metoprolol Tartrate (Lopressor) 25 mg PO BID [facility] Last Admin: 02/16/18 18:00 Dose: Not Given Ondansetron HCl (Zofran Inj) 4 mg IVP Q6H PRN PRN Reason: Nausea/Vomiting Last Admin: 02/15/18 07:56 Dose: 4 mg Pantoprazole Sodium (Protonix Inj) 40 mg IVP Q12 [facility] Last Admin: 02/16/18 21:38 Dose: 40 mg - Labs Labs: 02/16/18 17:15 02/16/18 17:15 PT 12.5 SECONDS (9.4-12.5) 02/12/18 17:55 INR 1.09 (0.93-1.08) H 02/12/18 17:55 APTT 33.8 Seconds (25.1-36.5) 02/12/18 17:55 <Natalie Bucio - Last Filed: 02/17/18 15:30> Objective - Vital Signs/Intake and Output Vital Signs (last 24 hours): Temp Pulse Resp BP Pulse Ox 98.4 F 76 16 159/88 H 97 02/17/18 12:00 02/17/18 14:00 02/17/18 12:00 02/17/18 12:00 02/17/18 06:00 Intake and Output: 02/17/18 02/17/18 06:59 18:59 Intake Total 620 Balance 620 - Medications Medications: Current Medications Acetaminophen (Tylenol 325mg Tab) 650 mg PO Q6H PRN PRN Reason: Pain, Mild (1-3) Last Admin: 02/14/18 16:44 Dose: 650 mg Clonidine HCl (Catapres) 0.1 mg PO Q6H PRN PRN Reason: Other Last Admin: 02/17/18 00:07 Dose: 0.1 mg Insulin Human Lispro (Humalog Med) 0 units SC ACHS [facility] PRN Reason: Protocol Last Admin: 02/17/18 11:57 Dose: 1 units Levothyroxine Sodium (Synthroid) 25 mcg PO 0600 [facility] Last Admin: 02/17/18 06:36 Dose: 25 mcg Lisinopril (Zestril) 20 mg PO DAILY [facility] Last Admin: 02/17/18 09:06 Dose: 20 mg Metoclopramide HCl (Reglan) 10 mg IVP ACHS [facility] Last Admin: 02/17/18 11:56 Dose: 10 mg Metoprolol Tartrate (Lopressor) 25 mg PO BID [facility] Last Admin: 02/17/18 09:06 Dose: 25 mg Ondansetron HCl (Zofran Inj) 4 mg IVP Q6H PRN PRN Reason: Nausea/Vomiting Last Admin: 02/15/18 07:56 Dose: 4 mg Pantoprazole Sodium (Protonix Inj) 40 mg IVP Q12 [facility] Last Admin: 02/17/18 09:06 Dose: 40 mg - Labs Labs: 02/17/18 06:00 02/17/18 06:00 PT 12.5 SECONDS (9.4-12.5) 02/12/18 17:55 INR 1.09 (0.93-1.08) H 02/12/18 17:55 APTT 33.8 Seconds (25.1-36.5) 02/12/18 17:55 Attending/Attestation - Attestation I have personally seen and examined this patient.: Yes I have fully participated in the care of the patient.: Yes I have reviewed all pertinent clinical information, including history, physical exam and plan: Yes Notes (Text): I have seen and examined patient with the resident at bedside. Agree with the above note. Overnight documentation was noted. Patient feels fine today and denies any complaints besides sore throat most likely secondary to intubation. BP is still slightly high. Will adjust medications. Discussed the plan in detail with the patient and consultants including GI and special events manager. Upon discharge The patient will follow up with PMD .
[2018-02-17 07:36] LABS: ALBUMIN 2.8 g/dL (3.0-4.8); ALT/SGPT 24 U/L (7-56); AST/SGOT 26 U/L (17-59); BLOOD UREA NITROGEN 11 mg/dL (7-21); CALCIUM 7.9 mg/dL (8.4-10.5); GFR AFRICAN-AMERICAN > 60; GFR NON-AFRICAN AMERICAN > 60
[2018-02-17] MEDS: Insulin Lispro (humaLOG) MEDIUM Coverage SC SCH ×4 (08:24→22:49)
--- NOTE | 2018-02-17 11:41 | RAD ---
HISTORY: Pneumonia COMPARISON: 02/16/2018 TECHNIQUE: Chest PA and lateral FINDINGS: LUNGS: No active pulmonary disease. PLEURA: No significant pleural effusion identified. No pneumothorax apparent. CARDIOVASCULAR: Normal. OSSEOUS STRUCTURES: No significant abnormalities. VISUALIZED UPPER ABDOMEN: Normal. OTHER FINDINGS: None. IMPRESSION: No active disease.
--- NOTE | 2018-02-17 11:44 | PN ---
DATE: 02/17/2018 FOLLOWUP SUBJECTIVE: The patient underwent upper endoscopy yesterday with the findings of esophageal lesion, gastric ulcer, hiatus hernia. Rapid response was called and during the procedure, the patient required brief intubation, was subsequently extubated. The rapid response was because of hypoxia. At this time, the patient complains of shortness of breath. PHYSICAL EXAMINATION: VITAL SIGNS: Blood pressure 166/91, heart rate 88, temperature 98.3, respirations 18. HEENT: Normocephalic. CHEST: Absent breath sounds over the right base. HEART: S1 and S2 regular. EXTREMITIES: No edema. LABORATORY DATA: Hemoglobin and hematocrit 11.3 and 32.4. White count and platelet count are within normal limits. SMA-7 today is within normal limit except for glucose of 138. Calcium is below normal 7.9. Chest x-ray done yesterday around 03:30 p.m. revealed right lung infiltrate involving the hilar region with questionable alveolar left lung infiltrate. 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 ASSESSMENT: 1. Esophageal lesions and gastric ulcer. 2. Rule out aspiration. 3. Uncontrolled hypertension. 4. Uncontrolled diabetes mellitus. 5. Hypothyroidism. RECOMMENDATIONS: Continue clonidine 0.1 mg every 6 hours, Lopressor 25 mg twice a day, Protonix 40 mg intravenously twice a day, Synthroid 25 mcg once a day, Zestril 20 mg once a day. I will obtain chest x-ray PA and lateral. Andrew García MD
--- NOTE | 2018-02-17 16:41 | CP.PCM.PN ---
Subjective - Date & Time of Evaluation Date of Evaluation: 02/17/18 Time of Evaluation: 10:25 - Subjective Subjective: Seen and examined at the bedside earlier today, chart review. Patient had attempted endoscopy but during procedure desaturated with decreased heart rate, status post RR T,intubated by anesthesia. patient was stabilized and sent back to telemetry. Patient had chest x-ray yesterday reporting some possible infiltrates. Repeat chest x-ray this morning shows no active disease. Patient denies any nausea, vomiting, or abdominal pain. Does complain of occasional chest pain. No shortness of breath. Family at bedside. Objective - Vital Signs/Intake and Output Vital Signs (last 24 hours): Temp Pulse Resp BP Pulse Ox 98.4 F 76 16 159/88 H 97 02/17/18 12:00 02/17/18 14:00 02/17/18 12:00 02/17/18 12:00 02/17/18 06:00 Intake and Output: 02/17/18 02/17/18 06:59 18:59 Intake Total 620 240 Balance 620 240 - Medications Medications: Current Medications Acetaminophen (Tylenol 325mg Tab) 650 mg PO Q6H PRN PRN Reason: Pain, Mild (1-3) Last Admin: 02/14/18 16:44 Dose: 650 mg Clonidine HCl (Catapres) 0.1 mg PO Q6H PRN PRN Reason: Other Last Admin: 02/17/18 00:07 Dose: 0.1 mg Insulin Human Lispro (Humalog Med) 0 units SC ACHS [facility] PRN Reason: Protocol Last Admin: 02/17/18 11:57 Dose: 1 units Levothyroxine Sodium (Synthroid) 25 mcg PO 0600 [facility] Last Admin: 02/17/18 06:36 Dose: 25 mcg Lisinopril (Zestril) 20 mg PO DAILY [facility] Last Admin: 02/17/18 09:06 Dose: 20 mg Metoclopramide HCl (Reglan) 10 mg IVP ACHS [facility] Last Admin: 02/17/18 11:56 Dose: 10 mg Metoprolol Tartrate (Lopressor) 25 mg PO BID [facility] Last Admin: 02/17/18 09:06 Dose: 25 mg Ondansetron HCl (Zofran Inj) 4 mg IVP Q6H PRN PRN Reason: Nausea/Vomiting Last Admin: 02/15/18 07:56 Dose: 4 mg Pantoprazole Sodium (Protonix Inj) 40 mg IVP Q12 [facility] Last Admin: 02/17/18 09:06 Dose: 40 mg - Labs Labs: 02/17/18 06:00 02/17/18 06:00 PT 12.5 SECONDS (9.4-12.5) 02/12/18 17:55 INR 1.09 (0.93-1.08) H 02/12/18 17:55 APTT 33.8 Seconds (25.1-36.5) 02/12/18 17:55 - Constitutional Appears: No Acute Distress - Head Exam Head Exam: NORMOCEPHALIC - Eye Exam Eye Exam: Normal appearance. absent: Scleral icterus - ENT Exam ENT Exam: Mucous Membranes Moist - Neck Exam Neck Exam: Normal Inspection - Respiratory Exam Respiratory Exam: NORMAL BREATHING PATTERN. absent: Respiratory Distress - Cardiovascular Exam Cardiovascular Exam: +S1, +S2 - GI/Abdominal Exam GI & Abdominal Exam: Soft, Normal Bowel Sounds. 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 Pulmonary infiltrates, repeat chest x-ray this morning no active disease Plan: On clear liquid diet Continue PPI On Reglan repeat egd, benefit from colon, can consider outpatient. Seen and discussed with Dr. Plaza.
[2018-02-18] MEDS: Levothyroxine 25 MCG TAB PO SCH (05:29)
[2018-02-18 06:21] VITALS: RESP 20; TEMP 97.5; O2SAT 98
--- NOTE | 2018-02-18 06:57 | CP.PCM.DIS ---
<Eugene Orr - Last Filed: 02/18/18 11:03> Provider - Provider Date of Admission: 02/15/18 14:33 Attending physician: Natalie Bucio MD Primary care physician: Tom Farmer MD Time Spent in preparation of Discharge (in minutes): 45 Diagnosis - Discharge Diagnosis (1) Chest pain Status: Resolved Priority: Medium (2) Nausea & vomiting Status: Resolved Priority: Medium (3) Hypertension Status: Chronic Priority: High (4) Diabetes Status: Chronic Priority: High Hospital Course - Lab Results Lab Results: Most Recent Lab Values WBC 7.3 10^3/ul (4.5-11.0) 02/17/18 06:00 RBC 3.93 10^6/uL (3.5-6.1) 02/17/18 06:00 Hgb 11.3 g/dL (14.0-18.0) L 02/17/18 06:00 Hct 32.4 % (42.0-52.0) L 02/17/18 06:00 MCV 82.4 fl (80.0-105.0) 02/17/18 06:00 MCH 28.8 pg (25.0-35.0) 02/17/18 06:00 MCHC 34.9 g/dl (31.0-37.0) 02/17/18 06:00 RDW 12.6 % (11.5-14.5) 02/17/18 06:00 Plt Count 280 10^3/uL (120.0-450.0) 02/17/18 06:00 MPV 10.2 fl (7.0-11.0) 02/17/18 06:00 Gran % 65.5 % (50.0-68.0) 02/17/18 06:00 Lymph % (Auto) 25.4 % (22.0-35.0) 02/17/18 06:00 [place] % (Auto) 6.7 % (1.0-6.0) H 02/17/18 06:00 Eos % (Auto) 2.1 % (1.5-5.0) 02/17/18 06:00 Baso % (Auto) 0.3 % (0.0-3.0) 02/17/18 06:00 Gran # 4.77 (1.4-6.5) 02/17/18 06:00 Lymph # (Auto) 1.9 (1.2-3.4) 02/17/18 06:00 [place] # (Auto) 0.5 (0.1-0.6) 02/17/18 06:00 Eos # (Auto) 0.2 (0.0-0.7) 02/17/18 06:00 Baso # (Auto) 0.02 K/mm3 (0.0-2.0) 02/17/18 06:00 PT 12.5 SECONDS (9.4-12.5) 02/12/18 17:55 INR 1.09 (0.93-1.08) H 02/12/18 17:55 APTT 33.8 Seconds (25.1-36.5) 02/12/18 17:55 D-Dimer, Quantitative 315 ng/mL (0-243) H 02/13/18 16:00 pCO2 59 mm/Hg (35-45) H 02/16/18 13:30 pO2 65.0 mm/Hg (80-100) L 02/16/18 13:30 HCO3 25.9 mmol/L (21-28) 02/16/18 13:30 ABG pH 7.25 (7.35-7.45) L 02/16/18 13:30 ABG Total CO2 27.7 mmol.L (22-28) 02/16/18 13:30 ABG O2 Saturation 94.5 % (95-98) L 02/16/18 13:30 ABG O2 Content 15.0 ML/dl (15-23) 02/16/18 13:30 ABG Base Excess -2.1 mmol/L (-2.0-3.0) L 02/16/18 13:30 ABG Hemoglobin 11.6 g/dL (11.7-17.4) L 02/16/18 13:30 ABG Carboxyhemoglobin 2.0 % (0.5-1.5) H 02/16/18 13:30 POC ABG HHb (Measured) 5.3 % (0-5) H 02/16/18 13:30 ABG Methemoglobin 1.0 % (0.0-3.0) 02/16/18 13:30 ABG O2 Capacity 15.9 mL/dl (16-24) L 02/16/18 13:30 Hgb O2 Saturation 91.7 % (95.0-98.0) L 02/16/18 13:30 FiO2 100.0 % 02/16/18 13:30 Sodium 140 mmol/L (132-148) 02/17/18 06:00 Potassium 3.7 mmol/L (3.6-5.0) 02/17/18 06:00 Chloride 106 mmol/L (98-107) 02/17/18 06:00 Carbon Dioxide 27 mmol/L (21-33) 02/17/18 06:00 Anion Gap 11 (10-20) 02/17/18 06:00 BUN 11 mg/dL (7-21) 02/17/18 06:00 Creatinine 1.0 mg/dl (0.8-1.5) 02/17/18 06:00 Est GFR ( Amer) > 60 02/17/18 06:00 Est GFR (Non-Af Amer) > 60 02/17/18 06:00 POC Glucose (mg/dL) 186 mg/dL (65-110) H 02/17/18 21:26 Random Glucose 138 mg/dL (70-110) H 02/17/18 06:00 Hemoglobin A1c 8.2 % (4.2-6.5) H D 02/12/18 17:55 Calcium 7.9 mg/dL (8.4-10.5) L 02/17/18 06:00 Phosphorus 4.6 mg/dL (2.5-4.5) H 02/16/18 17:15 Magnesium 2.1 mg/dL (1.7-2.2) 02/16/18 17:15 Total Bilirubin 0.5 mg/dL (0.2-1.3) 02/17/18 06:00 AST 26 U/L (17-59) 02/17/18 06:00 ALT 24 U/L (7-56) 02/17/18 06:00 Alkaline Phosphatase 47 U/L (38-126) 02/17/18 06:00 Lactate Dehydrogenase 557 U/L (333-699) 02/16/18 17:15 Total Creatine Kinase 131 U/L (35-230) 02/16/18 17:15 CK-MB (CK-2) 1.0 ng/mL (0.0-3.6) 02/13/18 06:00 CK-MB (CK-2) % Cancelled 02/12/18 17:55 Troponin I 0.03 ng/mL D 02/16/18 17:15 NT-Pro-B Natriuret Pep 580 pg/mL (0-450) H 02/16/18 17:15 Total Protein 5.6 g/dL (5.8-8.3) L 02/17/18 06:00 Albumin 2.8 g/dL (3.0-4.8) L 02/17/18 06:00 Globulin 2.8 gm/dL 02/17/18 06:00 Albumin/Globulin Ratio 1.0 (1.1-1.8) L 02/17/18 06:00 Triglycerides 104 mg/dL (35-160) 02/12/18 17:55 Cholesterol 165 mg/dL (130-200) 02/12/18 17:55 LDL Cholesterol Direct 60 mg/dL (0-129) 02/12/18 17:55 HDL Cholesterol 69 mg/dL (29-60) H 02/12/18 17:55 Procalcitonin < 0.05 NG/ML (0.19-0.49) L 02/17/18 08:46 Free T4 0.74 ng/dL (0.78-2.19) L 02/14/18 06:00 Thyroxine (T4) 6.8 ug/dL (5.5-11.0) 02/13/18 12:35 TSH 3rd Generation 17.60 mIU/mL (0.46-4.68) H 02/14/18 06:00 Urine Color Dark yellow (YELLOW) 02/13/18 19:30 Urine Appearance Sl cloudy (CLEAR) 02/13/18 19:30 Urine pH 5.5 (4.7-8.0) 02/13/18 19:30 Ur Specific [place] 1.025 (1.005-1.035) 02/13/18 19:30 Urine Protein >=300 mg/dL (<30 mg/dL) H 02/13/18 19:30 Urine Glucose (UA) 100 mg/dL (NEGATIVE) H 02/13/18 19:30 Urine Ketones Negative mg/dL (NEGATIVE) 02/13/18 19:30 Urine Blood Moderate (NEGATIVE) H 02/13/18 19:30 Urine Nitrate Negative (NEGATIVE) 02/13/18 19:30 Urine Bilirubin Negative (NEGATIVE) 02/13/18 19:30 Urine Urobilinogen 0.2 E.U./dL (<1 E.U./dL) 02/13/18 19:30 Ur Leukocyte Esterase Negative Maulik/uL (NEGATIVE) 02/13/18 19:30 Urine RBC 20 - 25 /hpf (0-2) 02/13/18 19:30 Urine WBC 2 - 5 /hpf (0-6) 02/13/18 19:30 Ur Epithelial Cells 6 - 8 /hpf (0-5) 02/13/18 19:30 Amorphous Sediment Small 02/13/18 19:30 Urine Bacteria Mod (NEG) 02/12/18 18:50 Hyaline Casts 0 - 2 /hpf 02/12/18 18:50 Fine Granular Casts 0 - 2 /hpf (0-2) 02/12/18 18:50 Urine Opiates Screen Negative (NEGATIVE) 02/13/18 19:30 Urine Methadone Screen Negative (NEGATIVE) 02/13/18 19:30 Ur Barbiturates Screen Negative (NEGATIVE) 02/13/18 19:30 Ur Phencyclidine Scrn Negative (NEGATIVE) 02/13/18 19:30 Ur Amphetamines Screen Negative (NEGATIVE) 02/13/18 19:30 U Benzodiazepines Scrn Negative (NEGATIVE) 02/13/18 19:30 U Oth Cocaine Metabols Negative (NEGATIVE) 02/13/18 19:30 U Cannabinoids Screen Negative (NEGATIVE) 02/13/18 19:30 - Hospital Course Hospital Course: Patient is a 47 year old male with a past medical history of hypertension and diabetes who was admitted for evaluation and treatment of chest pain. With the use of physical examinations, lab work, and imaging the patient was diagnosed with and treated for nonanginal chest (ACS was ruled out), intractable nausea/ vomitting along with the patients chronic medical conditions. During their hospital stay the patient was seen by cardiology (Dr. Jorgensen) and gastroenterology (Dr. Medellin) whose recommendations were both appreciated and utilized in the care for this patient. Patient underwent a cardiac catherization 02/14/18 which revealed required minimal coronary artery disease involving distal left main and mid left LAD with normal ventricular systolic function. During their hospital stay the patient underwent a chest xray, CT of chest, echo, and EGD which were reviewed, appreciated, and utilized in the management of the patients clinical course. The CXR showed no acute infiltrates , a small nodular density left lung base which could represent confluence of shadow, vessel on end or nipple shadow artifact. CT of chest was unremarkable. The echo showed normal chamber size 60-65%, trace to mild aortic regurgitation, trace tricuspid regurg. During endoscopy a rapid response was called because patient SaO2 and HR declined. Patient was intubated by anesthesiologist. As patient awoke from anesthesia he was able to respond to verbal stimuli, follow command, move all extremities. Pt was extubated by anesthesiologist and transferred to to the PACU for recovery. After recovery he was transferred to his room. No complications thereafter. Patient was treated with lisinopril, metoprolol, insulin, amongst other empiric/therapeutic medications. At this time the patient is medically stable for discharge. Patient understands and appreciates discharge plan. Patient instructed to follow up with primary care physicians and referrals within three to five days from discharge. Furthermore, the patient is instructed to take medications as prescribed and to return to emergency room for evaluation of intractable headache, fever, chills, dizziness , chest pain, shortness of breath, abdominal pain, nausea, vomiting, diarrhea, constipation, and urinary symptoms. This is a brief summary of the patients hospital course. Please see patient chart for full details. Discharge Exam - Head Exam Head Exam: NORMOCEPHALIC - Additional Findings Additional findings: - Constitutional Appears: Well, No Acute Distress - Head Exam Head Exam: ATRAUMATIC, NORMOCEPHALIC - Eye Exam Eye Exam: Normal appearance. absent: Scleral icterus - ENT Exam ENT Exam: Mucous Membranes Moist, Normal Exam - Neck Exam Neck Exam: Normal Inspection - Respiratory Exam Respiratory Exam: Clear to Auscultation Bilateral, NORMAL BREATHING PATTERN. absent: Rales, Rhonchi, Wheezes, Respiratory Distress - Cardiovascular Exam Cardiovascular Exam: REGULAR RHYTHM, +S1, +S2, left anterior chest wall tender to touch - GI/Abdominal Exam GI & Abdominal Exam: Soft, Normal Bowel Sounds. absent: Guarding, Rigid, Tenderness, Organomegaly - Extremities Exam Extremities Exam: no clubbing, no cyanosis absent: Joint Swelling - Neurological Exam Neurological Exam: Alert, Awake, Oriented x3 - Skin Skin Exam: Dry, Intact, Normal Color, Warm Discharge Plan - Discharge Medications Prescriptions: Levothyroxine [Synthroid] 25 mcg PO 0600 14 Days #14 tab Lisinopril [Zestril] 30 mg PO DAILY 14 Days #14 tab Metoprolol Tartrate [Lopressor] 25 mg PO BID 14 Days #28 tab - Follow Up Plan Condition: IMPROVED Disposition: HOME/ ROUTINE Patient education suggested?: Yes Instructions: Chest Pain, Cardiac Catheterization (DC), Nausea and Vomiting, Adult (DC), Hypertension (DC) Additional Instructions: Patient Instructions: Take medications as prescribed. Follow up with PMD and referrals within three to five days from discharge. Check TSH level in 4-6 weeks. Return to the emergency room for evaluation of intractable headache, fever, chills, dizziness, chest pain, shortness of breath, abdominal pain, nausea, vomiting, diarrhea, constipation, and urinary symptoms. Referrals: Tom Farmer MD [Primary Care Provider] - Hesham Medellin MD [Medical Doctor] - Andrew García MD [Staff Provider] - <Natalie Bucio - Last Filed: 02/18/18 13:12> Provider - Provider Date of Admission: 02/15/18 14:33 Attending physician: Natalie Bucio MD Primary care physician: Tom Farmer MD Hospital Course - Lab Results Lab Results: Most Recent Lab Values WBC 10.5 10^3/ul (4.5-11.0) D 02/18/18 06:30 RBC 3.96 10^6/uL (3.5-6.1) 02/18/18 06:30 Hgb 11.4 g/dL (14.0-18.0) L 02/18/18 06:30 Hct 32.8 % (42.0-52.0) L 02/18/18 06:30 MCV 82.8 fl (80.0-105.0) 02/18/18 06:30 MCH 28.8 pg (25.0-35.0) 02/18/18 06:30 MCHC 34.8 g/dl (31.0-37.0) 02/18/18 06:30 RDW 12.7 % (11.5-14.5) 02/18/18 06:30 Plt Count 295 10^3/uL (120.0-450.0) 02/18/18 06:30 MPV 10.5 fl (7.0-11.0) 02/18/18 06:30 Gran % 69.1 % (50.0-68.0) H 02/18/18 06:30 Lymph % (Auto) 20.2 % (22.0-35.0) L 02/18/18 06:30 [place] % (Auto) 7.6 % (1.0-6.0) H 02/18/18 06:30 Eos % (Auto) 2.7 % (1.5-5.0) 02/18/18 06:30 Baso % (Auto) 0.4 % (0.0-3.0) 02/18/18 06:30 Gran # 7.23 (1.4-6.5) H 02/18/18 06:30 Lymph # (Auto) 2.1 (1.2-3.4) 02/18/18 06:30 [place] # (Auto) 0.8 (0.1-0.6) H 02/18/18 06:30 Eos # (Auto) 0.3 (0.0-0.7) 02/18/18 06:30 Baso # (Auto) 0.04 K/mm3 (0.0-2.0) 02/18/18 06:30 PT 12.5 SECONDS (9.4-12.5) 02/12/18 17:55 INR 1.09 (0.93-1.08) H 02/12/18 17:55 APTT 33.8 Seconds (25.1-36.5) 02/12/18 17:55 D-Dimer, Quantitative 315 ng/mL (0-243) H 02/13/18 16:00 pCO2 59 mm/Hg (35-45) H 02/16/18 13:30 pO2 65.0 mm/Hg (80-100) L 02/16/18 13:30 HCO3 25.9 mmol/L (21-28) 02/16/18 13:30 ABG pH 7.25 (7.35-7.45) L 02/16/18 13:30 ABG Total CO2 27.7 mmol.L (22-28) 02/16/18 13:30 ABG O2 Saturation 94.5 % (95-98) L 02/16/18 13:30 ABG O2 Content 15.0 ML/dl (15-23) 02/16/18 13:30 ABG Base Excess -2.1 mmol/L (-2.0-3.0) L 02/16/18 13:30 ABG Hemoglobin 11.6 g/dL (11.7-17.4) L 02/16/18 13:30 ABG Carboxyhemoglobin 2.0 % (0.5-1.5) H 02/16/18 13:30 POC ABG HHb (Measured) 5.3 % (0-5) H 02/16/18 13:30 ABG Methemoglobin 1.0 % (0.0-3.0) 02/16/18 13:30 ABG O2 Capacity 15.9 mL/dl (16-24) L 02/16/18 13:30 Hgb O2 Saturation 91.7 % (95.0-98.0) L 02/16/18 13:30 FiO2 100.0 % 02/16/18 13:30 Sodium 139 mmol/L (132-148) 02/18/18 06:30 Potassium 3.6 mmol/L (3.6-5.0) 02/18/18 06:30 Chloride 107 mmol/L (98-107) 02/18/18 06:30 Carbon Dioxide 26 mmol/L (21-33) 02/18/18 06:30 Anion Gap 10 (10-20) 02/18/18 06:30 BUN 15 mg/dL (7-21) 02/18/18 06:30 Creatinine 1.1 mg/dl (0.8-1.5) 02/18/18 06:30 Est GFR ( Amer) > 60 02/18/18 06:30 Est GFR (Non-Af Amer) > 60 02/18/18 06:30 POC Glucose (mg/dL) 188 mg/dL (65-110) H 02/18/18 11:57 Random Glucose 167 mg/dL (70-110) H 02/18/18 06:30 Hemoglobin A1c 8.2 % (4.2-6.5) H D 02/12/18 17:55 Calcium 8.1 mg/dL (8.4-10.5) L 02/18/18 06:30 Phosphorus 4.6 mg/dL (2.5-4.5) H 02/16/18 17:15 Magnesium 2.1 mg/dL (1.7-2.2) 02/16/18 17:15 Total Bilirubin 0.2 mg/dL (0.2-1.3) 02/18/18 06:30 AST 26 U/L (17-59) 02/18/18 06:30 ALT 25 U/L (7-56) 02/18/18 06:30 Alkaline Phosphatase 61 U/L (38-126) 02/18/18 06:30 Lactate Dehydrogenase 557 U/L (333-699) 02/16/18 17:15 Total Creatine Kinase 131 U/L (35-230) 02/16/18 17:15 CK-MB (CK-2) 1.0 ng/mL (0.0-3.6) 02/13/18 06:00 CK-MB (CK-2) % Cancelled 02/12/18 17:55 Troponin I 0.03 ng/mL D 02/16/18 17:15 NT-Pro-B Natriuret Pep 580 pg/mL (0-450) H 02/16/18 17:15 Total Protein 5.8 g/dL (5.8-8.3) 02/18/18 06:30 Albumin 3.0 g/dL (3.0-4.8) 02/18/18 06:30 Globulin 2.8 gm/dL 02/18/18 06:30 Albumin/Globulin Ratio 1.0 (1.1-1.8) L 02/18/18 06:30 Triglycerides 104 mg/dL (35-160) 02/12/18 17:55 Cholesterol 165 mg/dL (130-200) 02/12/18 17:55 LDL Cholesterol Direct 60 mg/dL (0-129) 02/12/18 17:55 HDL Cholesterol 69 mg/dL (29-60) H 02/12/18 17:55 Procalcitonin < 0.05 NG/ML (0.19-0.49) L 02/17/18 08:46 Free T4 0.74 ng/dL (0.78-2.19) L 02/14/18 06:00 Thyroxine (T4) 6.8 ug/dL (5.5-11.0) 02/13/18 12:35 TSH 3rd Generation 17.60 mIU/mL (0.46-4.68) H 02/14/18 06:00 Urine Color Dark yellow (YELLOW) 02/13/18 19:30 Urine Appearance Sl cloudy (CLEAR) 02/13/18 19:30 Urine pH 5.5 (4.7-8.0) 02/13/18 19:30 Ur Specific [place] 1.025 (1.005-1.035) 02/13/18 19:30 Urine Protein >=300 mg/dL (<30 mg/dL) H 02/13/18 19:30 Urine Glucose (UA) 100 mg/dL (NEGATIVE) H 02/13/18 19:30 Urine Ketones Negative mg/dL (NEGATIVE) 02/13/18 19:30 Urine Blood Moderate (NEGATIVE) H 02/13/18 19:30 Urine Nitrate Negative (NEGATIVE) 02/13/18 19:30 Urine Bilirubin Negative (NEGATIVE) 02/13/18 19:30 Urine Urobilinogen 0.2 E.U./dL (<1 E.U./dL) 02/13/18 19:30 Ur Leukocyte Esterase Negative Maulik/uL (NEGATIVE) 02/13/18 19:30 Urine RBC 20 - 25 /hpf (0-2) 02/13/18 19:30 Urine WBC 2 - 5 /hpf (0-6) 02/13/18 19:30 Ur Epithelial Cells 6 - 8 /hpf (0-5) 02/13/18 19:30 Amorphous Sediment Small 02/13/18 19:30 Urine Bacteria Mod (NEG) 02/12/18 18:50 Hyaline Casts 0 - 2 /hpf 02/12/18 18:50 Fine Granular Casts 0 - 2 /hpf (0-2) 02/12/18 18:50 Urine Opiates Screen Negative (NEGATIVE) 02/13/18 19:30 Urine Methadone Screen Negative (NEGATIVE) 02/13/18 19:30 Ur Barbiturates Screen Negative (NEGATIVE) 02/13/18 19:30 Ur Phencyclidine Scrn Negative (NEGATIVE) 02/13/18 19:30 Ur Amphetamines Screen Negative (NEGATIVE) 02/13/18 19:30 U Benzodiazepines Scrn Negative (NEGATIVE) 02/13/18 19:30 U Oth Cocaine Metabols Negative (NEGATIVE) 02/13/18 19:30 U Cannabinoids Screen Negative (NEGATIVE) 02/13/18 19:30 Attending/Attestation - Attestation I have personally seen and examined this patient.: Yes I have fully participated in the care of the patient.: Yes I have reviewed all pertinent clinical information, including history, physical exam and plan: Yes Notes (Text): I have seen and examined patient with the resident at bedside. Agree with the above note. Overnight documentation was noted. Patient feels fine today and denies any complaints besides mild sore throat most likely secondary to intubation. BP has improved. His medications were adjusted. Discussed the plan in detail with the patient and consultants including GI and senior database engineer. Patient was advised to make an appointment for outpatient elective intubation and endoscopy. Upon discharge patient will follow up with PMD .
[2018-02-18 07:03] LABS: BASO # 0.04 K/mm3 (0.0-2.0); BASO % 0.4 % (0.0-3.0); EOS # 0.3 (0.0-0.7); EOS % 2.7 % (1.5-5.0); GRAN # 7.23 (1.4-6.5); GRAN % 69.1 % (50.0-68.0); HEMOGLOBIN 11.4 g/dL (14.0-18.0); LYMPH # 2.1 (1.2-3.4); LYMPH % 20.2 % (22.0-35.0); MEAN CELL VOLUME 82.8 fl (80.0-105.0); MEAN CORPUSCULAR HEMOGLOBIN 28.8 pg (25.0-35.0); MEAN CORPUSCULAR HGB CONC 34.8 g/dl (31.0-37.0); MEAN PLATELET VOLUME 10.5 fl (7.0-11.0); MONO # 0.8 (0.1-0.6); MONO % 7.6 % (1.0-6.0); RBC 3.96 10^6/uL (3.5-6.1); RED CELL DISTRIBUTION WIDTH 12.7 % (11.5-14.5); WHITE BLOOD COUNT 10.5 10^3/ul (4.5-11.0)
[2018-02-18 07:30] LABS: ALT/SGPT 25 U/L (7-56); AST/SGOT 26 U/L (17-59); BLOOD UREA NITROGEN 15 mg/dL (7-21); CALCIUM 8.1 mg/dL (8.4-10.5); GFR AFRICAN-AMERICAN > 60; GFR NON-AFRICAN AMERICAN > 60
[2018-02-18] MEDS: Insulin Lispro (humaLOG) MEDIUM Coverage SC SCH ×2 (08:16→12:03)
[2018-02-18 09:17] VITALS: BP 160/80
--- NOTE | 2018-02-18 15:49 | CP.PCM.PN ---
Subjective - Date & Time of Evaluation Date of Evaluation: 02/18/18 Time of Evaluation: 10:25 - Subjective Subjective: Seen and examined at the bedside earlier today, chart review. Patient tolerating solid food, no complaints of nausea, vomiting, or shortness of breath or chest pain. No complaints of abdominal pain. No acute overnight events reported. Objective - Vital Signs/Intake and Output Vital Signs (last 24 hours): Temp Pulse Resp BP Pulse Ox 97.5 F L 84 20 160/80 H 98 02/18/18 06:00 02/18/18 10:00 02/18/18 06:00 02/18/18 09:16 02/18/18 06:00 Intake and Output: 02/18/18 02/18/18 06:59 18:59 Intake Total 520 Balance 520 - Medications Medications: Current Medications Acetaminophen (Tylenol 325mg Tab) 650 mg PO Q6H PRN PRN Reason: Pain, Mild (1-3) Last Admin: 02/14/18 16:44 Dose: 650 mg Insulin Human Lispro (Humalog Med) 0 units SC ACHS [facility] PRN Reason: Protocol Last Admin: 02/18/18 12:03 Dose: 1 units Levothyroxine Sodium (Synthroid) 25 mcg PO 0600 [facility] Last Admin: 02/18/18 05:29 Dose: 25 mcg Lisinopril (Zestril) 30 mg PO DAILY [facility] Last Admin: 02/18/18 09:16 Dose: 30 mg Metoclopramide HCl (Reglan) 10 mg IVP ACHS [facility] Last Admin: 02/18/18 12:03 Dose: 10 mg Metoprolol Tartrate (Lopressor) 25 mg PO BID [facility] Last Admin: 02/18/18 09:16 Dose: 25 mg Ondansetron HCl (Zofran Inj) 4 mg IVP Q6H PRN PRN Reason: Nausea/Vomiting Last Admin: 02/15/18 07:56 Dose: 4 mg Pantoprazole Sodium (Protonix Inj) 40 mg IVP Q12 [facility] Last Admin: 02/18/18 09:12 Dose: 40 mg - Labs Labs: 02/18/18 06:30 02/18/18 06:30 PT 12.5 SECONDS (9.4-12.5) 02/12/18 17:55 INR 1.09 (0.93-1.08) H 02/12/18 17:55 APTT 33.8 Seconds (25.1-36.5) 02/12/18 17:55 - Constitutional Appears: No Acute Distress - Head Exam Head Exam: NORMOCEPHALIC - Eye Exam Eye Exam: Normal appearance. absent: Scleral icterus - ENT Exam ENT Exam: Mucous Membranes Moist - Neck Exam Neck Exam: Normal Inspection - Respiratory Exam Respiratory Exam: Clear to Ausculation Bilateral, NORMAL BREATHING PATTERN. absent: Respiratory Distress - Cardiovascular Exam Cardiovascular Exam: +S1, +S2 - GI/Abdominal Exam GI & Abdominal Exam: Soft, Normal Bowel Sounds. absent: Guarding, Tenderness, Organomegaly, Rebound - Extremities Exam Extremities Exam: absent: Calf Tenderness, Pedal Edema - Neurological Exam Neurological Exam: Alert, Awake, Oriented x3 - Skin Skin Exam: Dry, Warm Assessment and Plan - Assessment and Plan (Free Text) Assessment: Assessment: Chest pain, status post cardiac catheter, no acute finding Improved Epigastric pain, abdominal ultrasound negative for gallstones or CBD dilatation Resolved Intractable nausea and vomiting, attempted EGD, patient desaturated with decreased heart rate status post AGRICULTURIST ? Pulmonary infiltrates, repeat chest x-ray yesterday shows no active disease Plan: on heart healthy diet Continue PPI patient will be scheduled for elective outpatient endoscopy, patient is going to be discharged home today, discussed with patient at bedside. Seen and discussed with Dr. Medellin.
[2018-02-18 17:27] VITALS: PULSE 69
== END 2018-02-18 17:30 | disposition home or self-care (01) | DRG 287 ==
LOC: ED 17:21 → ERH 19:36 → 2RNO 22:14 → OBSVTOIN 02-15 14:33
PROVIDERS: ADMIT Internal Medicine; ATTEND Hospitalist
PROC: 4A023N7 Measurement of Cardiac Sampling and Pressure, Left Heart, Percutaneous Approach (ICD-10-PCS; principal; 2018-02-14)
PROC: B211YZZ Fluoroscopy of Multiple Coronary Arteries using Other Contrast (ICD-10-PCS; 2018-02-14)
PROC: B215YZZ Fluoroscopy of Left Heart using Other Contrast (ICD-10-PCS; 2018-02-14)
PROC: 0DB68ZX Excision of Stomach, Via Natural or Artificial Opening Endoscopic, Diagnostic (ICD-10-PCS; 2018-02-16)
DX: R07.89 Other chest pain (principal); I10 Essential (primary) hypertension; D64.9 Anemia, unspecified; R31.29 Other microscopic hematuria; E11.9 Type 2 diabetes mellitus without complications; I25.10 Atherosclerotic heart disease of native coronary artery without angina pectoris; K21.9 Gastro-esophageal reflux disease without esophagitis; K29.70 Gastritis, unspecified, without bleeding; E87.6 Hypokalemia; E03.9 Hypothyroidism, unspecified; R09.02 Hypoxemia; K25.9 Gastric ulcer, unspecified as acute or chronic, without hemorrhage or perforation; K57.30 Diverticulosis of large intestine without perforation or abscess without bleeding

== ENCOUNTER 2018-10-04 10:24 | Day surgery (SDC) | payer BC ==
[2018-09-30 13:22] VITALS: BMI 32.2
[2018-10-04 11:19] LABS: BASO # 0.05 K/mm3 (0.0-2.0); BASO % 0.7 % (0.0-3.0); EOS # 0.1 (0.0-0.7); EOS % 1.7 % (1.5-5.0); GRAN # 4.08 (1.4-6.5); GRAN % 53.6 % (50.0-68.0); LYMPH # 2.7 (1.2-3.4); LYMPH % 35.4 % (22.0-35.0); MEAN CELL VOLUME 82.2 fl (80.0-105.0); MEAN CORPUSCULAR HEMOGLOBIN 28.8 pg (25.0-35.0); MEAN CORPUSCULAR HGB CONC 35.1 g/dl (31.0-37.0); MEAN PLATELET VOLUME 10.4 fl (7.0-11.0); MONO # 0.7 (0.1-0.6); MONO % 8.6 % (1.0-6.0); RBC 4.16 10^6/uL (3.5-6.1); RED CELL DISTRIBUTION WIDTH 12.8 % (11.5-14.5); WHITE BLOOD COUNT 7.6 10^3/uL (4.5-11.0)
[2018-10-04 11:27] LABS: INR 0.99; PROTHROMBIN TIME 11.4 SECONDS (9.4-12.5)
[2018-10-04 11:28] LABS: BLOOD UREA NITROGEN 24 mg/dL (7-21); CALCIUM 8.8 mg/dL (8.4-10.5); GFR NON-AFRICAN AMERICAN 50
[2018-10-04] MEDS: Midazolam 2 MG/2 ML VIAL ONE ×2 (12:20→12:25)
[2018-10-04] MEDS ORDERED: Midazolam 2 MG/2 ML VIAL IVP ONE (12:30)
[2018-10-04] MEDS ORDERED: Oxycodone/Acetaminophen 5/325 mg Tab PO PRN (12:37)
[2018-10-04] MEDS ORDERED: Sodium Chloride 0.45% 1,000 ML IV SCH (12:45)
[2018-10-04 13:35] VITALS: RESP 18; TEMP 98.2; O2SAT 98
[2018-10-04 14:48] VITALS: BP 164/98; PULSE 7
--- NOTE | 2018-10-04 16:36 | CT ---
PROCEDURE: CT guided left renal cortex biopsy. HISTORY: Diabetes. Proteinuria with nephrotic syndrome. PHYSICIAN(S): Jh Yo MD. TECHNIQUE: The relative risks and indications of the procedure were explained to the patient and consent obtained. The patient was placed prone on the CT scanner and preliminary images through the kidneys obtained. Conscious sedation and monitoring were provided throughout the procedure by a nurse. The visualized renal parenchyma on these noncontrast images are normal and symmetric. A left posterior approach was selected and the area prepped and draped in the usual sterile fashion. 1% Xylocaine was used to anesthetize the skin and soft tissues. A 17-gauge guiding needle was advanced into the left renal cortex laterally and inferiorly. Its position was confirmed with CT. Using coaxial technique, multiple core biopsies were obtained. The postprocedure images show no evidence of significant hemorrhage. IMPRESSION: 1. CT-guided left renal cortex biopsy as described above.
== END 2018-10-04 14:55 | disposition home or self-care (01) ==
LOC: SDS 10:24
PROVIDERS: ATTEND Radiology Vascular & Interventional Radiology
DX: N04.9 Nephrotic syndrome with unspecified morphologic changes (principal); I10 Essential (primary) hypertension; E11.9 Type 2 diabetes mellitus without complications; N26.9 Renal sclerosis, unspecified
CPT/HCPCS: 36415; 50200; 77012; 80048; 85025; 85610; 85730; 99152; J2001; J2250; J2405; J3010; J7030